=== PATIENT | male | born 1945 ===

== ENCOUNTER 2016-09-22 22:18 | Emergency (ER) | payer MEDICARE ==
[2016-09-22 22:18] VITALS: BMI 27.6
[2016-09-22 22:29] VITALS: TEMP 98.2
[2016-09-22 23:25] VITALS: RESP 20
--- NOTE | 2016-09-22 23:49 | C.PDOC ---
History Of Present Illness 70 y/o male, past medical history of HTN, DM, and hypercholesterolemia, presents to emergency department with complaint of elevated blood pressure on home monitor prior to arrival. Patient presents today s/p CABG 2 months ago. Does not have list of medications, but on review, patient has no earline inhibitor in regimen. Patient otherwise denies headache, visual changes, chest pain, palpitations, shortness of breath, nausea, vomiting, or other associated symptoms. Time Seen by Provider: 09/22/16 23:07 Chief Complaint (Nursing): High Blood Pressure History Per: Patient History/Exam Limitations: no limitations Onset/Duration Of Symptoms: Hrs Current Symptoms Are (Timing): Still Present Associated Symptoms: denies: Chest Pain, Dyspnea, Dizziness, Blurred Vision, Focal Weakness, Headache Recent travel outside of the [place]: No Past Medical History Reviewed: Historical Data, Nursing Documentation, Vital Signs Vital Signs: Last Vital Signs Temp 98.2 F 09/22/16 23:24 Pulse 85 09/22/16 23:24 Resp 20 09/22/16 23:24 BP 170/83 H 09/22/16 23:24 Pulse Ox 100 09/23/16 01:10 - Medical History PMH: Diabetes, HTN, Hypercholesterolemia Surgical History: CABG, Coronary Stent - [facility] Procedures DILATION OF 1 COR ART WITH DRUG-ELUT INTRA, PERC APPROACH (07/20/16) DILATION OF CORONARY ARTERY, TWO ARTERIES, PERC APPROACH (07/20/16) MEASURE OF CARDIAC SAMPL & PRESSURE, L HEART, PERC APPROACH (07/20/16) PLAIN RADIOGRAPHY OF LEFT HEART USING OTHER CONTRAST (07/20/16) PLAIN RADIOGRAPHY OF MULT COR ART USING OTH CONTRAST (07/20/16) Family History: States: Unknown Family Hx - Social History Hx Tobacco Use: No Hx Alcohol Use: No Hx Substance Use: No - Immunization History Hx Tetanus Toxoid Vaccination: No Hx Influenza Vaccination: Yes Hx Pneumococcal Vaccination: No Review Of Systems Except As Marked, All Systems Reviewed And Found Negative. Constitutional: Negative for: Fever, Chills Cardiovascular: Negative for: Chest Pain, Palpitations Respiratory: Negative for: Cough, Shortness of Breath, Wheezing Gastrointestinal: Negative for: Nausea, Vomiting Skin: Negative for: Rash Neurological: Negative for: Headache, Dizziness Physical Exam - Physical Exam Appears: Non-toxic, No Acute Distress Skin: Normal Color, Warm, Dry Head: Atraumatic, Normacephalic Eye(s): bilateral: Normal Inspection Oral Mucosa: Moist Chest: Symmetrical, Other (midline sternotomy scar, clean dry and intact, healed ) Cardiovascular: Rhythm Regular, No Murmur Respiratory: Normal Breath Sounds, No Rales, No Rhonchi, No Wheezing Gastrointestinal/Abdominal: Soft, No Tenderness Back: Normal Inspection Extremity: Normal ROM, Capillary Refill (< 2 sec. ) Neurological/Psych: Oriented x3, Normal Speech, Normal Cognition ED Course And Treatment - Laboratory Results Result Diagrams: 09/23/16 00:58 09/23/16 00:58 Lab Interpretation: Normal (trop/bnp neg.) ECG: Interpreted By Me ECG Rhythm: Sinus Rhythm, Nonspecific Changes (T^ inversions v1-v6, maybe related to recent CABG) ECG Interpretation: Normal, Abnormal Rate From EC O2 Sat by Pulse Oximetry: 100 (RA) Pulse Ox Interpretation: Normal - Radiology CXR: Interpreted by Me CXR Interpretation: Yes: No Acute Disease Progress Note: EKG, CXR, bloodwork ordered. Treated with Vasotec. Reevaluation Time: 01:52 Reassessment Condition: Improved - Physician Consult Information Outcome Of Conversation: d/w Dr. Vargas @ 23:15- ok to f/u in office, Start ACEI if not already taking. Medical Decision Making Medical Decision Making: unclear if pt taking ACEI s/p CABG 2 mo ago, poorly controlled BP Tolerated Vasotec 10 mg PO well- continue as opt f/u with Dr. Vargas in AM Disposition Doctor Will See Patient In The: Office Counseled Patient/Family Regarding: Studies Performed, Diagnosis - Disposition Disposition: HOME/ ROUTINE Disposition Time: 01:54 Condition: GOOD - Clinical Impression Clinical Impression: Hypertension - Scribe Statement The provider has reviewed the documentation as recorded by the Myrnaibdenice Quigley All medical record entries made by the Myrnaibdenice were at my direction and personally dictated by me. I have reviewed the chart and agree that the record accurately reflects my personal performance of the history, physical exam, medical decision making, and the department course for this patient. I have also personally directed, reviewed, and agree with the discharge instructions and disposition.
[2016-09-23 01:03] LABS: BASO % 0.4 % (0.0-2.0); EOS # 0.1 K/uL (0.0-0.7); EOS % 0.9 % (0.0-4.0); LYMPH # 1.1 K/uL (1.0-4.3); LYMPH % 11.5 % (20.0-40.0); MEAN CELL VOLUME 85.9 fL (80.0-94.0); MEAN CORPUSCULAR HEMOGLOBIN 27.6 pg (27.0-31.0); MEAN CORPUSCULAR HGB CONC 32.1 g/dL (33.0-37.0); MEAN PLATELET VOLUME 10.6 fL (7.2-11.7); MONO # 1.9 K/uL (0.0-0.8); MONO % 19.5 % (0.0-10.0); RED CELL DISTRIBUTION WIDTH 14.8 % (11.5-14.5); WHITE BLOOD COUNT 9.9 K/uL (4.8-10.8)
[2016-09-23 01:11] LABS: INR 1.1
[2016-09-23 01:14] LABS: CHLORIDE 99 mmol/L (98-107)
[2016-09-23 01:15] LABS: POTASSIUM 3.5 mmol/L (3.6-5.2); SODIUM 140 mmol/L (132-148)
[2016-09-23 01:17] LABS: ALB/GLOB RATIO 1.2 (1.0-2.1); ALKALINE PHOSPHATASE 101 U/L (38-126); ALT/SGPT 24 U/L (21-72); AST/SGOT 26 U/L (17-59); BILIRUBIN,TOTAL 0.5 mg/dL (0.2-1.3); BLOOD UREA NITROGEN 15 mg/dL (9-20); CARBON DIOXIDE 27 mmol/L (22-30); GFR AFRICAN-AMERICAN > 60; GLUCOSE,RANDOM 149 mg/dL (75-110); TOTAL PROTEIN 8.2 g/dL (6.3-8.3)
[2016-09-23 01:18] LABS: CALCIUM 9.3 mg/dl (8.6-10.4)
[2016-09-23 02:12] VITALS: BP 161/78; PULSE 71
[2016-09-23 02:18] VITALS: O2SAT 100
--- NOTE | 2016-09-23 08:02 | RAD ---
PROCEDURE: CHEST RADIOGRAPH, 1 VIEW HISTORY: Shortness of breath COMPARISON: None available. FINDINGS: LUNGS: Mild venous congestion. Left basilar airspace opacity with question small left pleural effusion. PLEURA: As above. CARDIOVASCULAR: Cardiomegaly. Status post median sternotomy. OSSEOUS STRUCTURES: No significant abnormalities. VISUALIZED UPPER ABDOMEN: Normal. OTHER FINDINGS: None. IMPRESSION: Mild venous congestion. Left basilar airspace opacity with question small left pleural effusion.
--- NOTE | 2016-09-23 18:11 | CARD ---
APPROVED REPORT EKG Measurement Heart [id number] <Conclusion> Normal sinus rhythm Possible Left atrial enlargement T wave abnormality, consider anterolateral ischemia Abnormal ECG
== END 2016-09-23 02:11 | disposition home or self-care (01) ==
LOC: C.ER 22:18
DX: I10 Essential (primary) hypertension (principal)

== ENCOUNTER 2016-09-28 22:29 | Observation (INO) | payer MEDICARE, OTHER ==
[2016-09-28 22:41] VITALS: BMI 26.5
[2016-09-28] MEDS ORDERED: Aspirin 325 mg EC Tablets PO STA (22:41)
--- NOTE | 2016-09-28 22:41 | C.PDOC ---
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 Denies any shortness of breath, nausea, or fever. Time Seen by Provider: 09/28/16 22:40 Chief Complaint (Nursing): Chest Pain History Per: Patient History/Exam Limitations: no limitations Onset/Duration Of Symptoms: Hrs (2) Current Symptoms Are (Timing): Still Present Severity: Moderate Pain Scale Rating Of: 4 Quality: Dull, Aching, Pressure Associated Symptoms: denies: Nausea, Dyspnea Modifying Factors: None Exacerbating Factors: None Alleviating Factors: None Recent travel outside of the [place]: No Additional History Per: Patient Past Medical History Reviewed: Historical Data, Nursing Documentation, Vital Signs Vital Signs: Last Vital Signs Temp 98.1 F 09/28/16 22:41 Pulse 77 09/28/16 23:55 Resp 14 09/28/16 23:55 BP 150/80 09/28/16 23:55 Pulse Ox 100 09/28/16 23:55 - Medical History PMH: Diabetes, HTN, Hypercholesterolemia Denies: Chronic Kidney Disease Surgical History: CABG, Coronary Stent - [facility] Procedures DILATION OF 1 COR ART WITH DRUG-ELUT INTRA, PERC APPROACH (07/20/16) DILATION OF CORONARY ARTERY, TWO ARTERIES, PERC APPROACH (07/20/16) MEASURE OF CARDIAC SAMPL & PRESSURE, L HEART, PERC APPROACH (07/20/16) PLAIN RADIOGRAPHY OF LEFT HEART USING OTHER CONTRAST (07/20/16) PLAIN RADIOGRAPHY OF MULT COR ART USING OTH CONTRAST (07/20/16) Family History: States: No Known Family Hx - Social History Hx Tobacco Use: No Hx Alcohol Use: No Hx Substance Use: No - Immunization History Hx Tetanus Toxoid Vaccination: No Hx Influenza Vaccination: Yes Hx Pneumococcal Vaccination: No Review Of Systems Constitutional: Negative for: Fever ENT: Negative for: Throat Pain Cardiovascular: Positive for: Chest Pain Respiratory: Negative for: Shortness of Breath Gastrointestinal: Negative for: Nausea Genitourinary: Negative for: Dysuria Musculoskeletal: Negative for: Back Pain Skin: Negative for: Rash, Lesions, Jaundice Neurological: Negative for: Weakness Psych: Negative for: Anxiety Physical Exam - Physical Exam Appears: Well, Non-toxic Skin: Warm, Dry Head: Atraumatic Oral Mucosa: Moist Neck: Supple Chest: Symmetrical, No Tenderness, Other (CABG scar) Cardiovascular: Rhythm Regular, No Murmur Respiratory: No Rales, No Rhonchi, No Wheezing Gastrointestinal/Abdominal: Soft, No Tenderness Back: Normal Inspection Extremity: Normal ROM Extremity: Bilateral: Atraumatic, No Pedal Edema, Normal Color And Temperature Neurological/Psych: Oriented x3, Normal Speech, Normal Cognition Gait: Steady ED Course And Treatment - Laboratory Results Result Diagrams: 09/28/16 22:46 09/28/16 22:46 ECG: Interpreted By Me, Viewed By Me ECG Rhythm: Sinus Rhythm (90), Nonspecific Changes Pulse Ox Interpretation: Normal - Radiology CXR: Interpreted by Me, Viewed By Me CXR Interpretation: Yes: Other (mild venous congestion). No: Infiltrates, Fracture, Pnemothorax Progress Note: Blood work, EKG, CXR, and urinalysis ordered. Ecotrin PO, morphine IVP, and zofran IVP administered. Disposition Discussed With DrDeanna: Darian Vargas Comment: accepted the pt on his service and took over the care at 11:58 PM Doctor Will See Patient In The: Hospital Counseled Patient/Family Regarding: Studies Performed, Diagnosis - Disposition Disposition: HOSPITALIZED Disposition Time: 22:40 Condition: FAIR - POA Present On Arrival: None - Clinical Impression Clinical Impression: Chest pain - Scribe Statement The provider has reviewed the documentation as recorded by the Scribdenice Brian All medical record entries made by the Scribe were at my direction and personally dictated by me. I have reviewed the chart and agree that the record accurately reflects my personal performance of the history, physical exam, medical decision making, and the department course for this patient. I have also personally directed, reviewed, and agree with the discharge instructions and disposition. Decision To Admit - Pt Status Changed To: Hospital Disposition Of: Inpatient - Admit Certification Admit to Inpatient:: After my assessment, the patient will require hospitalization for at least two midnights. This is because of the severity of symptoms shown, intensity of services needed, and/or the medical risk in this patient being treated as an outpatient. - InPatient: Physician Admission Certification: I certify that this patient requires 2 or more midnights of care for the following reason:: After my assessment, the patient will require hospitalization for at least two midnights. This is because of the severity of symptoms shown, intensity of services needed, and/or the medical risk in this patient being treated as an outpatient. - . Bed Request Type: Telemetry Admitting Physician: Darian Vargas Patient Diagnosis: Chest pain
[2016-09-28 22:50] LABS: BASO # 0.1 K/uL (0.0-0.2); EOS # 0.1 K/uL (0.0-0.7)
[2016-09-28 22:55] LABS: BASO % 0.8 % (0.0-2.0); EOS % 1.4 % (0.0-4.0); HEMATOCRIT 37.6 % (35.0-51.0); LYMPH # 2.3 K/uL (1.0-4.3); MEAN CELL VOLUME 84.9 fL (80.0-94.0); MEAN CORPUSCULAR HEMOGLOBIN 27.9 pg (27.0-31.0); MEAN CORPUSCULAR HGB CONC 32.9 g/dL (33.0-37.0); MEAN PLATELET VOLUME 10.5 fL (7.2-11.7); MONO # 2.5 K/uL (0.0-0.8); MONO % 24.9 % (0.0-10.0); NRBC % 0.1 % (0.0-2.0); RED CELL DISTRIBUTION WIDTH 14.6 % (11.5-14.5); WHITE BLOOD COUNT 10.2 K/uL (4.8-10.8)
[2016-09-28 22:58] LABS: PLATELET COUNT 100 K/uL (130-400)
[2016-09-28 22:59] LABS: INR 1.1
[2016-09-28 23:07] LABS: CHLORIDE 100 mmol/L (98-107); SODIUM 139 mmol/L (132-148)
[2016-09-28 23:08] LABS: POTASSIUM 3.5 mmol/L (3.6-5.2)
[2016-09-28 23:10] LABS: ALB/GLOB RATIO 1.3 (1.0-2.1); ALKALINE PHOSPHATASE 89 U/L (38-126); AST/SGOT 25 U/L (17-59); BILIRUBIN,TOTAL 0.6 mg/dL (0.2-1.3); BLOOD UREA NITROGEN 20 mg/dL (9-20); CARBON DIOXIDE 26 mmol/L (22-30); GFR AFRICAN-AMERICAN > 60; GLUCOSE,RANDOM 108 mg/dL (75-110); TOTAL PROTEIN 8.2 g/dL (6.3-8.3)
[2016-09-28 23:11] LABS: ALT/SGPT 18 U/L (21-72); CALCIUM 9.3 mg/dl (8.6-10.4)
[2016-09-28 23:27] LABS: EOSINOPHIL 1 % (0-4); NEUTROPHIL 43 % (50-75); REACTIVE LYMPHOCYTES 5 % (0-0); TOTAL CELLS COUNTED 100
[2016-09-29] MEDS ORDERED: Nitroglycerin 2% Ointment Foilpak UD TOP ONE (00:24)
[2016-09-29] MEDS: Nitroglycerin 2% Ointment Foilpak UD TOP SCH ×3 (06:04→18:39)
[2016-09-29] MEDS: (Novolin R) Insulin Human Regular 100 units/ml vial SC SCH ×4 (07:45→21:54)
--- NOTE | 2016-09-29 08:56 | RAD ---
HISTORY: chest pain COMPARISON: Chest x-ray performed 09/22/16 TECHNIQUE: Chest, one view. FINDINGS: LUNGS: Left basilar atelectasis and probable tiny left pleural effusion. Please note that chest x-ray has limited sensitivity for the detection of pulmonary masses. PLEURA: No significant pleural effusion identified. No definite pneumothorax . CARDIOVASCULAR: Median sternotomy wires. Cardiomegaly. Atherosclerotic calcifications. OSSEOUS STRUCTURES: Degenerative changes. VISUALIZED UPPER ABDOMEN: Unremarkable. OTHER FINDINGS: None. IMPRESSION: Left basilar atelectasis and probable tiny left pleural effusion.
[2016-09-29] MEDS ORDERED: Aluminum Hydroxide/Magnesium Hydroxide Susp (30 mL) PO ONE (09:18)
[2016-09-29] MEDS: Enoxaparin 30 mg Syringe SC SCH (09:37)
[2016-09-29] MEDS ORDERED: ROSUVASTATIN CALCIUM 40 MG PO SCH (10:00)
[2016-09-29] MEDS: Pantoprazole 40 mg EC Tab PO SCH (11:53)
--- NOTE | 2016-09-29 14:16 | CP.PCM.HP ---
History of Present Illness - History of Present Illness History of Present Illness: COMPREHENSIVE HISTORY & PHYSICAL EXAM HPI PT EXPERIECED SHARP CHEST PAIN AT REST . EVALUATED IN ER AND ADMITTED HAD 2 VESSEL CAD BYPASS 08/16. POST OP HAS REKHA C/O CHEST PAIN FROM SURGICAL INCISION. NO CP ON EXERTION PAST HIST. HTN /CABG PERSONAL HIST: Smoking. N Alcohol. N Allergy N Travel_- . FAMILY HIST : ROS : Constitutional: Negative for weight change, chills, night sweats, fatigue and usage of assist device. Eyes: Negative for redness, swelling, itching, discharge, vision changes, blurry vision, double vision, glaucoma, cataracts, Ears: Negative for hearing loss, ringing, , tinnitus, vertigo Nose: Negative for rhinorrhea, stuffiness, sniffing, itching, postnasal drip, discoloration, nasal congestion and epistaxis. Throat: Negative for throat clearing, sore throat, hoarseness, difficulty swallowing and difficulty speaking. Respiratory: Negative for cough, chest tightness, sputum or phlegm, chronic cough, hemoptysis, wheezing, snoring at night, pleuritic chest pain and daytime somnolence. Cardiovascular: Negative , palpitations, orthopnea, PND, Edema of legs, leg cramps, angina, claudication, , irregular heartbeat, Neurology: Negative for irritability, muscle weakness, numbness and tingling, seizures, tremors, migraines, slurred speech, syncope, memory loss, mood changes , recurrent headaches Gastrointestinal: Negative for difficulty swallowing, diarrhea, constipation, black stools, rectal bleeding, nausea, flatulence, reflux, poor appetite, changes in bowel habits, abdominal pain Genitourinary: Negative for frequent urination, hematuria, discharge, incontinence, urinary retention, frequent UTI, Psychiatric: Negative for depression, anxiety/panic, suicidal tendencies, Musculoskeletal: Negative for swollen joints, back pain, , neck pain, morning stiffness of joints, . Skin: Negative for rash, ulcers, itching, dry skin and pigmented lesions. P/E: Constitutional: Appears stated age and in no apparent distress. Head: Normocephalic. Ears: External ear canals patent without inflammation. Tympanic membranes intact with normal light reflex and landmark. Eyes: Pupils are central, bilaterally equal, symmetrical and reacts to light with normal movements and no icterus or pallor. Nose: External nares are patent. Mucosa is pink Mouth-Throat: Good general appearance and condition. No post-pharyngeal/oropharyngeal erythema and tonsillar hypertrophy. Good dental hygiene. Neck-Lymphatic: Neck is supple with normal ROM, no thyromegaly, lymph nodes or masses. JVD is normal with no carotid bruit. Lungs: Clear to percussion and auscultation with bilateral normal air entry. Cardiovascular: S1 and S2 are normal with no murmurs, gallops and rub. GI Exam: No hepatomegaly. Abdomen is soft and non-tender. No Organomegaly , masses or hernias are evident and bowel sounds are normal and active. Neurology: Higher function and all cranial nerves intact, with no gross motor or sensory deficit. Superficial and deep reflexes are normal with downwards planters. No cerebellar deficit with normal gait. Musculoskeletal: No tender spots with normal curvature of the spine with no swelling or restricted ROM of the small and large joints. Extremities: Homans sign absent. Intact pulses with no pitting edema, calf tenderness or skin color changes. Skin: No rash, eruptions or abnormal skin pigmentation LAB/RADIOLOGY: ASSESMENT : ATYPICAL CP , MUSCULAR/ANGINA HTN CABG PLAN OBSERVE Present on Admission - Present on Admission Any Indicators Present on Admission: No Past Patient History - Infectious Disease Hx of Infectious Diseases: None - Past Medical History & Family History Past Medical History?: Yes - Past Social History Smoking Status: Former Smoker - CARDIAC Hx Hypercholesterolemia: Yes Hx Hypertension: Yes - RENAL Hx Chronic Kidney Disease: No - ENDOCRINE/METABOLIC Hx Diabetes Mellitus Type 2: Yes - MUSCULOSKELETAL/RHEUMATOLOGICAL Hx Falls: No - GASTROINTESTINAL Hx Gastroesophageal Reflux: Yes - PSYCHIATRIC Hx Substance Use: No - SURGICAL HISTORY Hx Coronary Artery Bypass Graft: Yes Hx Coronary Stent: Yes - ANESTHESIA Hx Anesthesia: Yes Hx Anesthesia Reactions: No Hx Malignant Hyperthermia: No Meds Allergies/Adverse Reactions: Allergies Allergy/AdvReac Type Severity Reaction Status Date / Time No Known Allergies Allergy Verified 09/22/16 22:29 Results - Vital Signs Recent Vital Signs: Last Vital Signs Temp 97.3 F L 09/29/16 08:41 Pulse 71 09/29/16 08:41 Resp 18 09/29/16 08:41 BP 141/82 09/29/16 09:32 Pulse Ox 99 09/29/16 08:41 - Labs Result Diagrams: 09/28/16 22:46 09/28/16 22:46 Labs: Laboratory Results - last 24 hr 09/29/16 09/29/16 09/29/16 06:10 06:14 11:52 POC Glucose (mg/dL) 113 H 136 H Total Creatine Kinase 67 CK-MB (Mass) 0.52 Troponin I, Quant < 0.0120 09/29/16 13:38 POC Glucose (mg/dL) Total Creatine Kinase 67 CK-MB (Mass) 0.62 Troponin I, Quant < 0.0120
[2016-09-29 15:50] VITALS: RESP 20
[2016-09-30] MEDS: Nitroglycerin 2% Ointment Foilpak UD TOP SCH ×3 (00:53→12:00)
[2016-09-30 01:29] VITALS: TEMP 98.2
[2016-09-30] MEDS: (Novolin R) Insulin Human Regular 100 units/ml vial SC SCH ×2 (08:05→12:00)
[2016-09-30] MEDS: Pantoprazole 40 mg EC Tab PO SCH (09:29)
[2016-09-30] MEDS: Enoxaparin 30 mg Syringe SC SCH (09:31)
[2016-09-30] MEDS ORDERED: Pneumococcal 23-Valent Vaccine IM ONE (10:00)
--- NOTE | 2016-09-30 12:39 | CP.PCM.DIS ---
Provider - Provider Date of Admission: 09/28/16 23:59 Attending physician: Darian Vargas MD Time Spent in preparation of Discharge (in minutes): 35 Hospital Course - Lab Results Lab Results: Most Recent Lab Values WBC 10.2 K/uL (4.8-10.8) 09/28/16 22:46 RBC 4.43 Mil/uL (4.40-5.90) 09/28/16 22:46 Hgb 12.4 g/dL (12.0-18.0) 09/28/16 22:46 Hct 37.6 % (35.0-51.0) 09/28/16 22:46 MCV 84.9 fL (80.0-94.0) 09/28/16 22:46 MCH 27.9 pg (27.0-31.0) 09/28/16 22:46 MCHC 32.9 g/dL (33.0-37.0) L 09/28/16 22:46 RDW 14.6 % (11.5-14.5) H 09/28/16 22:46 Plt Count 100 K/uL (130-400) L 09/28/16 22:46 MPV 10.5 fL (7.2-11.7) 09/28/16 22:46 Neut % (Auto) 49.9 % (50.0-75.0) L 09/28/16 22:46 Lymph % (Auto) 23.0 % (20.0-40.0) 09/28/16 22:46 Branch % (Auto) 24.9 % (0.0-10.0) H 09/28/16 22:46 Eos % (Auto) 1.4 % (0.0-4.0) 09/28/16 22:46 Baso % (Auto) 0.8 % (0.0-2.0) 09/28/16 22:46 Neut # 5.1 K/uL (1.8-7.0) 09/28/16 22:46 Lymph # 2.3 K/uL (1.0-4.3) 09/28/16 22:46 Branch # 2.5 K/uL (0.0-0.8) H 09/28/16 22:46 Eos # 0.1 K/uL (0.0-0.7) 09/28/16 22:46 Baso # 0.1 K/uL (0.0-0.2) 09/28/16 22:46 Neutrophils % (Manual) 43 % (50-75) L 09/28/16 22:46 Lymphocytes % (Manual) 18 % (20-40) L 09/28/16 22:46 Reactive Lymphs % 5 % (0-0) H 09/28/16 22:46 Monocytes % (Manual) 33 % (0-10) H 09/28/16 22:46 Eosinophils % (Manual) 1 % (0-4) 09/28/16 22:46 Platelet Estimate Decreased (NORMAL) L 09/28/16 22:46 PT 12.2 SECONDS (9.7-12.2) 09/28/16 22:46 INR 1.1 09/28/16 22:46 APTT 35 SECONDS (21-34) H 09/28/16 22:46 Sodium 139 mmol/L (132-148) 09/28/16 22:46 Potassium 3.5 mmol/L (3.6-5.2) L 09/28/16 22:46 Chloride 100 mmol/L (98-107) 09/28/16 22:46 Carbon Dioxide 26 mmol/L (22-30) 09/28/16 22:46 Anion Gap 17 (10-20) 09/28/16 22:46 BUN 20 mg/dL (9-20) 09/28/16 22:46 Creatinine 1.0 MG/DL (0.8-1.5) 09/28/16 22:46 Est GFR ( Amer) > 60 09/28/16 22:46 Est GFR (Non-Af Amer) > 60 09/28/16 22:46 POC Glucose (mg/dL) 100 mg/dL (65-110) 09/30/16 11:41 Random Glucose 108 mg/dL (75-110) 09/28/16 22:46 Calcium 9.3 mg/dl (8.6-10.4) 09/28/16 22:46 Total Bilirubin 0.6 mg/dL (0.2-1.3) 09/28/16 22:46 AST 25 U/L (17-59) 09/28/16 22:46 ALT 18 U/L (21-72) L D 09/28/16 22:46 Alkaline Phosphatase 89 U/L (38-126) 09/28/16 22:46 Total Creatine Kinase 55 U/L (55-170) 09/30/16 06:22 CK-MB (Mass) 0.47 ng/mL (0.0-3.38) 09/30/16 06:22 Troponin I < 0.0120 ng/mL (0.00-0.120) 09/28/16 22:46 Troponin I, Quant < 0.0120 ng/mL (0.00-0.120) 09/30/16 06:22 NT-Pro-B Natriuret Pep 280 pg/mL (0-900) 09/28/16 22:46 Total Protein 8.2 g/dL (6.3-8.3) 09/28/16 22:46 Albumin 4.6 g/dL (3.5-5.0) 09/28/16 22:46 Globulin 3.6 gm/dL (2.2-3.9) 09/28/16 22:46 Albumin/Globulin Ratio 1.3 (1.0-2.1) 09/28/16 22:46 - Hospital Course Hospital Course: ADMITTED WITH ATYPICAL CP S/P 2 V CABG LAST MONTH PT HAD NEG TNI EKG UNCHANGED FROM PREVIOUS F/U OP IV LEXISCAN OP Discharge Plan - Follow Up Plan Condition: FAIR Disposition: HOME/ ROUTINE
[2016-09-30 13:00] LABS: BASO % 0.3 % (0.0-2.0); EOS # 0.1 K/uL (0.0-0.7); EOS % 1.4 % (0.0-4.0); HEMATOCRIT 40.7 % (35.0-51.0); LYMPH # 0.9 K/uL (1.0-4.3); LYMPH % 13.2 % (20.0-40.0); MEAN CELL VOLUME 86.4 fL (80.0-94.0); MEAN CORPUSCULAR HEMOGLOBIN 27.9 pg (27.0-31.0); MEAN CORPUSCULAR HGB CONC 32.3 g/dL (33.0-37.0); MEAN PLATELET VOLUME 10.9 fL (7.2-11.7); MONO # 1.6 K/uL (0.0-0.8); MONO % 21.8 % (0.0-10.0); PLATELET COUNT 112 K/uL (130-400); RED CELL DISTRIBUTION WIDTH 14.8 % (11.5-14.5); WHITE BLOOD COUNT 7.2 K/uL (4.8-10.8)
[2016-09-30 13:35] LABS: CHLORIDE 98 mmol/L (98-107)
[2016-09-30 13:36] LABS: POTASSIUM 3.8 mmol/L (3.6-5.2); SODIUM 140 mmol/L (132-148)
[2016-09-30 13:38] LABS: ALB/GLOB RATIO 1.2 (1.0-2.1); AST/SGOT 25 U/L (17-59); BILIRUBIN,TOTAL 0.8 mg/dL (0.2-1.3); BLOOD UREA NITROGEN 10 mg/dL (9-20); CARBON DIOXIDE 27 mmol/L (22-30); GFR AFRICAN-AMERICAN > 60
[2016-09-30 13:39] LABS: ALKALINE PHOSPHATASE 79 U/L (38-126); ALT/SGPT 11 U/L (21-72); CALCIUM 9.2 mg/dl (8.6-10.4); GLUCOSE,RANDOM 137 mg/dL (75-110)
[2016-09-30 13:59] LABS: EOSINOPHIL 1 % (0-4); NEUTROPHIL 65 % (50-75); TOTAL CELLS COUNTED 100
[2016-09-30 14:00] LABS: GIANT PLATELETS PRESENT; LARGE PLATELETS PRESENT
[2016-09-30 15:29] VITALS: BP 121/71; PULSE 62; O2SAT 97
--- NOTE | 2016-09-30 15:40 | CARD ---
APPROVED REPORT EKG Measurement Heart [id number] 140P52 [id number] <Conclusion> Normal sinus rhythm Possible Left atrial enlargement ST & T wave abnormality, consider anterior ischemia Abnormal ECG
--- NOTE | 2016-10-01 14:07 | CARD ---
APPROVED REPORT EKG Measurement Heart [id number] 142P62 [id number] <Conclusion> Normal sinus rhythm Possible Left atrial enlargement Incomplete right bundle branch block T wave abnormality, consider anterior ischemia Abnormal ECG
== END 2016-09-30 16:05 | disposition home or self-care (01) ==
LOC: C.ER 22:29 → INTOOBSV 23:59 → C.6T 23:59
PROVIDERS: ADMIT Internal Medicine Cardiovascular Disease; ATTEND Internal Medicine Cardiovascular Disease
DX: I25.119 Atherosclerotic heart disease of native coronary artery with unspecified angina pectoris (principal); I10 Essential (primary) hypertension; Z95.1 Presence of aortocoronary bypass graft; Z23 Encounter for immunization
CPT/HCPCS: 36415; 71010; 80053; 82948; 83880; 84484; 85025; 85610; 85730; 90732; 93005; 96374; 96375; 99284; G0009; G0378; J1650; J2270; J2405

== ENCOUNTER 2016-11-01 13:37 | Inpatient (IN) | payer MEDICARE ==
[2016-10-30 08:03] VITALS: BMI 25.1
[2016-11-01] MEDS ORDERED: Iodixanol 320 MG/ML 100 ML BOTTLE IV ONE (15:21)
[2016-11-01] MEDS ORDERED: Iohexol 350mg/ml 100 ML ONE ×2 (15:22→16:23)
--- NOTE | 2016-11-01 18:50 | CARDCATH ---
PROCEDURE DATE: 10/31/2016 The patient is a 70-year-old with history of coronary artery with CABG with MACKEY. He has recurrent c hest pain on minimal exertion. IV Myoview was positive in the anteroseptal region. The patient underwent a left heart catheterization. A left heart cath was done to the right femoral sarahi ry. The right femoral artery was cleaned, draped and #6 introducer sheath was inserted with slight d ifficulty and Angio-Seal was used post-cath. Jovita was used for right-left and Jovita was also us ed for the graft. LV gram was not done. Left main is a normal vessel with some 20% to 30% lesion. LAD proximally is 100% blocked. Circumfle x vessel gives off the large OM branch. The stent in the OM appears to be functioning well and subse quently the OM cannot be seen, is 100% blocked. RCA is a large, dominant vessel. Proximally the doug nt appears to be functioning well. There is still a slight bend of about 20%. The MACKEY graft proximal to the body and to the insertion appears normal. There are no lesions. The graft to the diagonal has a stump, but is 100% blocked. There were no other grafts. The proce dure was concluded. ASSESSMENT: Functioning left internal mammary artery graft to the left anterior descending 100% blocked graft __ __saphenous vein graft to the diagonal functioning stent to the proximal right coronary artery and th e obtuse marginal branch. We will discuss this with interventional cardiology as the patient continues to have chest pain on mi nimal exertion. Darian Vargas MD cc: [id number] TT: 11/01/2016 18:49:40
--- NOTE | 2016-11-01 22:31 | CP.PCM.HP ---
History of Present Illness - History of Present Illness History of Present Illness: COMPREHENSIVE HISTORY & PHYSICAL EXAM HPI PT ADMITTED AFTER CARDIAC CATH PT IS S/P CABG , MACKEY TO LAD AND SVG TO DIAG. AND STENT IN POX RCA . PT HAS CP ON MINIMAL EXERTION AND HAD A HIGHLY POS IV LEXISCAN MYOVIEW TEST IN ANT .ANT LATERAL WITH ST DEPRESSION PT HAS PATENT MACKEY AND OCCLUDRD SVG TO IDAG AND NORMAL STENT IN RCA . LV GRAM NOT DONE . IN VIEW OF PERSISTENT CP , PT WAS ADMITTED FOR FURTHER EVAL PAST HIST. CAD/STENT/CABG/THROMBOCYTOPENIA /HTN PERSONAL HIST: Smoking. N Alcohol. N Allergy N Travel_- . FAMILY HIST : ROS : Constitutional: Negative for weight change, chills, night sweats, fatigue and usage of assist device. Eyes: Negative for redness, swelling, itching, discharge, vision changes, blurry vision, double vision, glaucoma, cataracts, Ears: Negative for hearing loss, ringing, , tinnitus, vertigo Nose: Negative for rhinorrhea, stuffiness, sniffing, itching, postnasal drip, discoloration, nasal congestion and epistaxis. Throat: Negative for throat clearing, sore throat, hoarseness, difficulty swallowing and difficulty speaking. Respiratory: Negative for cough, chest tightness, sputum or phlegm, chronic cough, hemoptysis, wheezing, snoring at night, pleuritic chest pain and daytime somnolence. Cardiovascular: Negative for chest pain, palpitations, orthopnea, PND, Edema of legs, leg cramps, angina, claudication, , irregular heartbeat, Neurology: Negative for irritability, muscle weakness, numbness and tingling, seizures, tremors, migraines, slurred speech, syncope, memory loss, mood changes , recurrent headaches Gastrointestinal: Negative for difficulty swallowing, diarrhea, constipation, black stools, rectal bleeding, nausea, flatulence, reflux, poor appetite, changes in bowel habits, abdominal pain Genitourinary: Negative for frequent urination, hematuria, discharge, incontinence, urinary retention, frequent UTI, Psychiatric: Negative for depression, anxiety/panic, suicidal tendencies, Musculoskeletal: Negative for swollen joints, back pain, , neck pain, morning stiffness of joints, . Skin: Negative for rash, ulcers, itching, dry skin and pigmented lesions. P/E: Constitutional: Appears stated age and in no apparent distress. Head: Normocephalic. Ears: External ear canals patent without inflammation. Tympanic membranes intact with normal light reflex and landmark. Eyes: Pupils are central, bilaterally equal, symmetrical and reacts to light with normal movements and no icterus or pallor. Nose: External nares are patent. Mucosa is pink Mouth-Throat: Good general appearance and condition. No post-pharyngeal/oropharyngeal erythema and tonsillar hypertrophy. Good dental hygiene. Neck-Lymphatic: Neck is supple with normal ROM, no thyromegaly, lymph nodes or masses. JVD is normal with no carotid bruit. Lungs: Clear to percussion and auscultation with bilateral normal air entry. Cardiovascular: S1 and S2 are normal with no murmurs, gallops and rub. GI Exam: No hepatomegaly. Abdomen is soft and non-tender. No Organomegaly , masses or hernias are evident and bowel sounds are normal and active. Neurology: Higher function and all cranial nerves intact, with no gross motor or sensory deficit. Superficial and deep reflexes are normal with downwards planters. No cerebellar deficit with normal gait. Musculoskeletal: No tender spots with normal curvature of the spine with no swelling or restricted ROM of the small and large joints. Extremities: Homans sign absent. Intact pulses with no pitting edema, calf tenderness or skin color changes. R. GRON RECENT CATH WOUND , NO HEMATOMA Skin: No rash, eruptions or abnormal skin pigmentation LAB/RADIOLOGY: ASSESMENT : UNSTABLE ANGINA HTN CABG/STENT DM PLAN: WILL D/W DR. MICHAEL, IC , IF ANY FURTHER INTERVENTION IS FEASIBLE. MAXIMIZE MEDICAL ANTI ANGINAL THERAPY Past Patient History - Infectious Disease Hx of Infectious Diseases: None - Past Medical History & Family History Past Medical History?: Yes - Past Social History Smoking Status: Former Smoker - CARDIAC Hx Cardiac Disorders: Yes Hx Angina: Yes ("ATYPICAL CP, MUSCULAR/ANGINA") Hx Hypercholesterolemia: Yes Hx Hypertension: Yes Other/Comment: HX: NON-ST ELEVATION MYOCARDIAL INFARCTION. HX: CORONARY ARTERY DISEASE AND STENTPLACEMENT. HX: (2) V CABG AUGUST 2016. HX: 07/23/16 -OBTUSE MARGINAL ARTERY BALLON ANGIOPLAST AND DRUG-ELUDING STENT PLACEMENT. - LEFT ANTERIOR DESCENDING CORONARY ARTERY BALLON ANGIOPLASTY. - PULMONARY Hx Respiratory Disorders: No - NEUROLOGICAL Hx Neurological Disorder: No - HEENT Hx HEENT Problems: No - RENAL Hx Chronic Kidney Disease: No - ENDOCRINE/METABOLIC Hx Endocrine Disorders: Yes Hx Diabetes Mellitus Type 2: Yes - HEMATOLOGICAL/ONCOLOGICAL Hx Blood Disorders: No - INTEGUMENTARY Hx Dermatological Problems: No - MUSCULOSKELETAL/RHEUMATOLOGICAL Hx Musculoskeletal Disorders: No Hx Falls: No - GASTROINTESTINAL Hx Gastrointestinal Disorders: Yes Hx Gastroesophageal Reflux: Yes - GENITOURINARY/GYNECOLOGICAL Hx Genitourinary Disorders: No - PSYCHIATRIC Hx Psychophysiologic Disorder: No Hx Substance Use: No - SURGICAL HISTORY Hx Surgeries: Yes Hx Angioplasty: Yes Hx Cardiac Catheterization: Yes Hx Coronary Artery Bypass Graft: Yes Hx Coronary Stent: Yes Hx Herniorrhaphy: Yes (LEFT GROIN) - ANESTHESIA Hx Anesthesia: Yes Hx Anesthesia Reactions: No Hx Malignant Hyperthermia: No Meds Allergies/Adverse Reactions: Allergies Allergy/AdvReac Type Severity Reaction Status Date / Time No Known Allergies Allergy Verified 09/22/16 22:29 Results - Vital Signs Recent Vital Signs: Last Vital Signs Temp 98 F 11/01/16 18:25 Pulse 68 11/01/16 18:25 Resp 20 11/01/16 18:25 BP 134/72 11/01/16 18:25 Pulse Ox 99 11/01/16 18:25 - Labs Result Diagrams: 11/02/16 11:16 11/02/16 11:16 Labs: Laboratory Results - last 24 hr 11/01/16 11/01/16 14:17 21:29 POC Glucose (mg/dL) 74 200 H
[2016-11-01] MEDS: Ranolazine 500 mg Extended Release Tablets PO SCH (23:00)
[2016-11-02 05:34] VITALS: O2SAT 98
[2016-11-02] MEDS: Ranolazine 500 mg Extended Release Tablets PO SCH (09:38)
[2016-11-02] MEDS ORDERED: Enoxaparin 40 mg Syringe SC SCH (10:00)
[2016-11-02 11:24] LABS: LYMPH # 0.8 K/uL (1.0-4.3); MEAN CORPUSCULAR HEMOGLOBIN 27.9 pg (27.0-31.0); WHITE BLOOD COUNT 6.4 K/uL (4.8-10.8)
[2016-11-02 11:29] LABS: CHLORIDE 97 mmol/L (98-107); POTASSIUM 4.1 mmol/L (3.6-5.2); SODIUM 135 mmol/L (132-148)
[2016-11-02 11:32] LABS: CARBON DIOXIDE 30 mmol/L (22-30); GFR AFRICAN-AMERICAN > 60
[2016-11-02 11:33] LABS: BLOOD UREA NITROGEN 13 mg/dL (9-20); CALCIUM 8.7 mg/dl (8.6-10.4); GLUCOSE,RANDOM 158 mg/dL (75-110)
[2016-11-02 11:38] LABS: BASO # 0.1 K/uL (0.0-0.2); BASO % 1.1 % (0.0-2.0); EOS # 0.2 K/uL (0.0-0.7); EOS % 3.4 % (0.0-4.0); HEMATOCRIT 37.8 % (35.0-51.0); MEAN CELL VOLUME 84.5 fL (80.0-94.0); MEAN PLATELET VOLUME 10.1 fL (7.2-11.7); MONO # 1.4 K/uL (0.0-0.8); MONO % 21.7 % (0.0-10.0); RED CELL DISTRIBUTION WIDTH 13.8 % (11.5-14.5)
[2016-11-02 11:39] LABS: PLATELET COUNT 89 K/uL (130-400)
[2016-11-02 11:50] LABS: EOSINOPHIL 3 % (0-4); NEUTROPHIL 67 % (50-75); TOTAL CELLS COUNTED 100
[2016-11-02 11:51] LABS: LARGE PLATELETS PRESENT
[2016-11-02 11:52] LABS: GIANT PLATELETS PRESENT
[2016-11-02 13:07] VITALS: BP 125/71
--- NOTE | 2016-11-02 14:18 | CP.PCM.PN ---
Subjective - Date & Time of Evaluation Date of Evaluation: 11/02/16 Time of Evaluation: 14:17 - Subjective Subjective: NO CP AT REST , CP ON MINIMAL EXERTION CATH WOUND HEALING INCREASE MEDS TO D/W IC Objective - Vital Signs/Intake and Output Vital Signs (last 24 hours): Temp Pulse Resp BP Pulse Ox 98.1 F 66 26 H 125/71 98 11/02/16 09:25 11/02/16 13:00 11/02/16 09:25 11/02/16 13:00 11/02/16 09:25 Intake and Output: 11/02/16 11/02/16 11:59 23:59 Intake Total 110 Output Total 600 Balance -490 - Medications Medications: Current Medications Aspirin (Ecotrin) 81 mg PO DAILY [facility] Last Admin: 11/02/16 10:03 Dose: 81 mg Clopidogrel Bisulfate (Plavix) 75 mg PO DAILY [facility] Last Admin: 11/02/16 09:38 Dose: 75 mg Docusate Sodium (Colace) 200 mg PO DAILY [facility] Last Admin: 11/02/16 09:38 Dose: 200 mg Enalapril Maleate (Vasotec) 10 mg PO DAILY [facility] Last Admin: 11/02/16 09:39 Dose: 10 mg Enoxaparin Sodium (Lovenox) 40 mg SC DAILY [facility] Last Admin: 11/02/16 09:39 Dose: 40 mg Famotidine (Pepcid) 20 mg PO BID [facility] Last Admin: 11/02/16 09:39 Dose: 20 mg Metformin HCl (Glucophage) 500 mg PO DAILY [facility] Last Admin: 11/02/16 09:39 Dose: 500 mg Metoprolol Tartrate (Lopressor) 100 mg PO DAILY [facility] Last Admin: 11/02/16 09:38 Dose: 100 mg Ranolazine (Ranexa) 500 mg PO BID [facility] Last Admin: 11/02/16 09:38 Dose: 500 mg Rosuvastatin Calcium (Crestor) 40 mg PO [facility] - Labs Labs: 11/02/16 11:16 11/02/16 11:16
[2016-11-02 15:57] VITALS: PULSE 59
[2016-11-02 16:28] VITALS: RESP 20; TEMP 98.3
[2016-11-02] MEDS ORDERED: Ranolazine 500 mg Extended Release Tablets PO SCH (18:00)
--- NOTE | 2016-11-02 18:48 | CP.PCM.CON ---
History of Present Illness - History of Present Illness History of Present Illness: A 70 year old male Hx of CAD s/p multi vessel PCI, CABG X 2 (07/2016) admitted chest pain with minimal exertion. Stress test reveals positive ischemia in lateral wall. Patient states the pain associated with dyspnea and palpitations and limiting his functional ability Past Medical History PMH: Diabetes, HTN, Hypercholesterolemia Surgical History: Coronary Stents, CABG x 2 Family History: States: Unknown Family Hx - Social History Hx Tobacco Use: No Hx Alcohol Use: Yes Hx Substance Use: No - Immunization History Hx Tetanus Toxoid Vaccination: No Hx Influenza Vaccination: Yes Hx Pneumococcal Vaccination: No Review Of Systems Except As Marked, All Systems Reviewed And Found Negative. Constitutional: Negative for: Fever Cardiovascular: Positive for: Chest Pain Respiratory: Negative for: Shortness of Breath Gastrointestinal: Negative for: Nausea, Vomiting, Abdominal Pain, Diarrhea Neurological: Negative for: Headache, Dizziness Physical Exam - Physical Exam Appears: Well, Non-toxic Skin: Warm, Dry Head: Atraumatic, Normacephalic Eye(s): bilateral: Normal Inspection Ear(s): Bilateral: Normal Throat: Normal, No Erythema, No Exudate Neck: Normal, Normal ROM, Supple Chest: Symmetrical, Tenderness Cardiovascular: Rhythm Regular Respiratory: Normal Breath Sounds, No Rales, No Rhonchi, No Wheezing Gastrointestinal/Abdominal: Soft, No Tenderness, No Guarding, No Rebound Back: Normal Inspection Extremity: Normal ROM, No Tenderness, No Pedal Edema, Capillary Refill, No Deformity, No Swelling Pulses: Left Dorsalis Pedis: Normal, Right Dorsalis Pedis: Normal Neurological/Psych: Oriented x3, Normal Speech, Normal Cognition Past Patient History - Infectious Disease Hx of Infectious Diseases: None - Past Medical History & Family History Past Medical History?: Yes - Past Social History Smoking Status: Former Smoker - CARDIAC Hx Cardiac Disorders: Yes Hx Angina: Yes ("ATYPICAL CP, MUSCULAR/ANGINA") Hx Hypercholesterolemia: Yes Hx Hypertension: Yes Other/Comment: HX: NON-ST ELEVATION MYOCARDIAL INFARCTION. HX: CORONARY ARTERY DISEASE AND STENTPLACEMENT. HX: (2) V CABG AUGUST 2016. HX: 07/23/16 -OBTUSE MARGINAL ARTERY BALLON ANGIOPLAST AND DRUG-ELUDING STENT PLACEMENT. - LEFT ANTERIOR DESCENDING CORONARY ARTERY BALLON ANGIOPLASTY. - PULMONARY Hx Respiratory Disorders: No - NEUROLOGICAL Hx Neurological Disorder: No - HEENT Hx HEENT Problems: No - RENAL Hx Chronic Kidney Disease: No - ENDOCRINE/METABOLIC Hx Endocrine Disorders: Yes Hx Diabetes Mellitus Type 2: Yes - HEMATOLOGICAL/ONCOLOGICAL Hx Blood Disorders: No - INTEGUMENTARY Hx Dermatological Problems: No - MUSCULOSKELETAL/RHEUMATOLOGICAL Hx Musculoskeletal Disorders: No Hx Falls: No - GASTROINTESTINAL Hx Gastrointestinal Disorders: Yes Hx Gastroesophageal Reflux: Yes - GENITOURINARY/GYNECOLOGICAL Hx Genitourinary Disorders: No - PSYCHIATRIC Hx Psychophysiologic Disorder: No Hx Substance Use: No - SURGICAL HISTORY Hx Surgeries: Yes Hx Angioplasty: Yes Hx Cardiac Catheterization: Yes Hx Coronary Artery Bypass Graft: Yes Hx Coronary Stent: Yes Hx Herniorrhaphy: Yes (LEFT GROIN) - ANESTHESIA Hx Anesthesia: Yes Hx Anesthesia Reactions: No Hx Malignant Hyperthermia: No Meds Allergies/Adverse Reactions: Allergies Allergy/AdvReac Type Severity Reaction Status Date / Time No Known Allergies Allergy Verified 09/22/16 22:29 - Medications Medications: Current Medications Aspirin (Ecotrin) 81 mg PO DAILY [facility] Last Admin: 11/02/16 10:03 Dose: 81 mg Clopidogrel Bisulfate (Plavix) 75 mg PO DAILY [facility] Last Admin: 11/02/16 09:38 Dose: 75 mg Docusate Sodium (Colace) 200 mg PO DAILY [facility] Last Admin: 11/02/16 09:38 Dose: 200 mg Enalapril Maleate (Vasotec) 10 mg PO DAILY [facility] Last Admin: 11/02/16 09:39 Dose: 10 mg Enoxaparin Sodium (Lovenox) 40 mg SC DAILY [facility] Last Admin: 11/02/16 09:39 Dose: 40 mg Famotidine (Pepcid) 20 mg PO BID [facility] Last Admin: 11/02/16 17:36 Dose: 20 mg Isosorbide Mononitrate (Ismo) 20 mg PO Q8 [facility] Last Admin: 11/02/16 15:27 Dose: 20 mg Metformin HCl (Glucophage) 500 mg PO DAILY [facility] Last Admin: 11/02/16 09:39 Dose: 500 mg Metoprolol Tartrate (Lopressor) 100 mg PO BID [facility] Ranolazine (Ranexa) 500 mg PO TID [facility] Last Admin: 11/02/16 17:36 Dose: 500 mg Rosuvastatin Calcium (Crestor) 40 mg PO HS [facility] Results - Vital Signs Recent Vital Signs: Last Vital Signs Temp 98.3 F 11/02/16 15:00 Pulse 59 L 11/02/16 15:56 Resp 20 11/02/16 15:00 BP 125/71 11/02/16 13:00 Pulse Ox 98 11/02/16 15:00 - Labs Result Diagrams: 11/02/16 11:16 11/02/16 11:16 Labs: Laboratory Results - last 24 hr 11/01/16 11/02/16 11/02/16 21:29 06:17 11:16 WBC 6.4 RBC 4.47 Hgb 12.5 Hct 37.8 MCV 84.5 MCH 27.9 MCHC 33.0 RDW 13.8 Plt Count 89 L D MPV 10.1 Neut % (Auto) 60.8 Lymph % (Auto) 13.0 L [place] % (Auto) 21.7 H Eos % (Auto) 3.4 Baso % (Auto) 1.1 Neut # 3.9 Lymph # 0.8 L [place] # 1.4 H Eos # 0.2 Baso # 0.1 Neutrophils % (Manual) 67 Lymphocytes % (Manual) 10 L Monocytes % (Manual) 20 H Eosinophils % (Manual) 3 Platelet Estimate Decreased L Large Platelets Present Giant Platelets Present Hypochromasia (manual) Slight Poikilocytosis (manual Slight Anisocytosis (manual) Slight Ovalocytes Slight Fern Cells Slight Sodium Potassium Chloride Carbon Dioxide Anion Gap BUN Creatinine Est GFR ( Amer) Est GFR (Non-Af Amer) POC Glucose (mg/dL) 200 H 73 Random Glucose Calcium 11/02/16 11/02/16 11/02/16 11:16 11:20 16:50 WBC RBC Hgb Hct MCV MCH MCHC RDW Plt Count MPV Neut % (Auto) Lymph % (Auto) [place] % (Auto) Eos % (Auto) Baso % (Auto) Neut # Lymph # [place] # Eos # Baso # Neutrophils % (Manual) Lymphocytes % (Manual) Monocytes % (Manual) Eosinophils % (Manual) Platelet Estimate Large Platelets Giant Platelets Hypochromasia (manual) Poikilocytosis (manual Anisocytosis (manual) Ovalocytes [place] Cells Sodium 135 Potassium 4.1 Chloride 97 L Carbon Dioxide 30 Anion Gap 12 BUN 13 Creatinine 0.9 Est GFR ( Amer) > 60 Est GFR (Non-Af Amer) > 60 POC Glucose (mg/dL) 186 H 115 H Random Glucose 158 H Calcium 8.7 Assessment & Plan - Assessment and Plan (Free Text) Assessment: 1. CAD/Non ST RI/2 Vessel CAD Chest pain with minimal exertion S/P CABG x 2 (07/2016) SVG to Diag occluded Likely benefit from LAD to Diag intervention Plan for PCI at [facility] as out patient D/W Patient and family 2. DM 2 On Meds 3. HTN/High Narcisa Heart Healthy Diet Medications (Statins/B Blockers)
--- NOTE | 2016-11-03 14:13 | CP.PCM.DIS ---
Provider - Provider Date of Admission: 11/01/16 16:56 Attending physician: Darian Vargas MD Time Spent in preparation of Discharge (in minutes): 30 Hospital Course - Lab Results Lab Results: Most Recent Lab Values WBC 6.4 K/uL (4.8-10.8) 11/02/16 11:16 RBC 4.47 Mil/uL (4.40-5.90) 11/02/16 11:16 Hgb 12.5 g/dL (12.0-18.0) 11/02/16 11:16 Hct 37.8 % (35.0-51.0) 11/02/16 11:16 MCV 84.5 fL (80.0-94.0) 11/02/16 11:16 MCH 27.9 pg (27.0-31.0) 11/02/16 11:16 MCHC 33.0 g/dL (33.0-37.0) 11/02/16 11:16 RDW 13.8 % (11.5-14.5) 11/02/16 11:16 Plt Count 89 K/uL (130-400) L D 11/02/16 11:16 MPV 10.1 fL (7.2-11.7) 11/02/16 11:16 Neut % (Auto) 60.8 % (50.0-75.0) 11/02/16 11:16 Lymph % (Auto) 13.0 % (20.0-40.0) L 11/02/16 11:16 [place] % (Auto) 21.7 % (0.0-10.0) H 11/02/16 11:16 Eos % (Auto) 3.4 % (0.0-4.0) 11/02/16 11:16 Baso % (Auto) 1.1 % (0.0-2.0) 11/02/16 11:16 Neut # 3.9 K/uL (1.8-7.0) 11/02/16 11:16 Lymph # 0.8 K/uL (1.0-4.3) L 11/02/16 11:16 [place] # 1.4 K/uL (0.0-0.8) H 11/02/16 11:16 Eos # 0.2 K/uL (0.0-0.7) 11/02/16 11:16 Baso # 0.1 K/uL (0.0-0.2) 11/02/16 11:16 Neutrophils % (Manual) 67 % (50-75) 11/02/16 11:16 Lymphocytes % (Manual) 10 % (20-40) L 11/02/16 11:16 Monocytes % (Manual) 20 % (0-10) H 11/02/16 11:16 Eosinophils % (Manual) 3 % (0-4) 11/02/16 11:16 Platelet Estimate Decreased (NORMAL) L 11/02/16 11:16 Large Platelets Present 11/02/16 11:16 Giant Platelets Present 11/02/16 11:16 Hypochromasia (manual) Slight 11/02/16 11:16 Poikilocytosis (manual Slight 11/02/16 11:16 Anisocytosis (manual) Slight 11/02/16 11:16 Ovalocytes Slight 11/02/16 11:16 Fern Cells Slight 11/02/16 11:16 Sodium 135 mmol/L (132-148) 11/02/16 11:16 Potassium 4.1 mmol/L (3.6-5.2) 11/02/16 11:16 Chloride 97 mmol/L (98-107) L 11/02/16 11:16 Carbon Dioxide 30 mmol/L (22-30) 11/02/16 11:16 Anion Gap 12 (10-20) 11/02/16 11:16 BUN 13 mg/dL (9-20) 11/02/16 11:16 Creatinine 0.9 MG/DL (0.8-1.5) 11/02/16 11:16 Est GFR ( Amer) > 60 11/02/16 11:16 Est GFR (Non-Af Amer) > 60 11/02/16 11:16 POC Glucose (mg/dL) 115 mg/dL (65-110) H 11/02/16 16:50 Random Glucose 158 mg/dL (75-110) H 11/02/16 11:16 Calcium 8.7 mg/dl (8.6-10.4) 11/02/16 11:16 - Hospital Course Hospital Course: PT ADMITTED AFTER CARDIAC CATH PT IS S/P CABG , MACKEY TO LAD AND SVG TO DIAG. AND STENT IN POX RCA . PT HAS CP ON MINIMAL EXERTION AND HAD A HIGHLY POS IV LEXISCAN MYOVIEW TEST IN ANT .ANT LATERAL WITH ST DEPRESSION PT HAS PATENT MACKEY AND OCCLUDRD SVG TO IDAG AND NORMAL STENT IN RCA . LV GRAM NOT DONE . IN VIEW OF PERSISTENT CP , PT WAS ADMITTED FOR FURTHER EVAL PAST HIST. CAD/STENT/CABG/THROMBOCYTOPENIA /HTN DR. MICHAEL, IC WAS CONSULTED MEDICAL THERAPY WAS MAXIMIZE PT WAS D/C HOME , NO EXERTION AND F/U ON 11/05 IN [facility] , DR. MOHR FOR FURTHER INTERVENTION Discharge Plan - Follow Up Plan Condition: GOOD Disposition: HOME/ ROUTINE Instructions: Angina (DC), Coronary Artery Disease (DC) Additional Instructions: Follow up with Dr. Vargas in one week. Continue home meds. Referrals: Darian Vargas MD [Staff Provider] -
== END 2016-11-02 20:45 | disposition home or self-care (01) | DRG 287 ==
LOC: C.CATHLAB 13:37 → C.6T 16:56
PROVIDERS: ADMIT Internal Medicine Cardiovascular Disease; ATTEND Internal Medicine Cardiovascular Disease
PROC: B2051ZZ Plain Radiography of Left Heart using Low Osmolar Contrast (ICD-10-PCS; 2016-11-01)
PROC: B2011ZZ Plain Radiography of Multiple Coronary Arteries using Low Osmolar Contrast (ICD-10-PCS; 2016-11-01)
PROC: 4A023N7 Measurement of Cardiac Sampling and Pressure, Left Heart, Percutaneous Approach (ICD-10-PCS; principal; 2016-11-01 15:30)
DX: I25.110 Atherosclerotic heart disease of native coronary artery with unstable angina pectoris (principal); D69.6 Thrombocytopenia, unspecified; I25.2 Old myocardial infarction; E11.9 Type 2 diabetes mellitus without complications; E78.00 Pure hypercholesterolemia, unspecified; I10 Essential (primary) hypertension; K21.9 Gastro-esophageal reflux disease without esophagitis; Z87.891 Personal history of nicotine dependence; Z95.1 Presence of aortocoronary bypass graft; Z79.4 Long term (current) use of insulin

== ENCOUNTER 2017-11-21 15:17 | Observation (INO) | payer MEDICARE ==
[2017-11-21 15:17] VITALS: BMI 25.1
--- NOTE | 2017-11-21 15:57 | C.PDOC ---
History Of Present Illness 71 y/o M c PMHx HTN, HLD, DM, CAD s/p CABG and stent p/w chest pain x 4 hours. Pain began at rest after eating sandwich, nonradiating, associated with palpitations, felt like "gas" but without improvement after "gas pill." Patient continued to worsen but after taking nitrospray 30 minutes ago, almost gone now. Denies fever, chills, dyspnea, nausea, vomiting, diaphoresis, leg swelling. Time Seen by Provider: 11/21/17 15:33 Chief Complaint (Nursing): Chest Pain Past Medical History Vital Signs: Last Vital Signs Temp 98.4 F 11/21/17 15:24 Pulse 144 H 11/21/17 15:24 Resp 18 11/21/17 15:24 BP 133/78 11/21/17 15:24 Pulse Ox 97 11/21/17 16:20 - Medical History PMH: Diabetes, HTN, Hypercholesterolemia Denies: Chronic Kidney Disease Surgical History: CABG, Coronary Stent - [facility] Procedures DILATION OF 1 COR ART WITH DRUG-ELUT INTRA, PERC APPROACH (07/20/16) DILATION OF CORONARY ARTERY, TWO ARTERIES, PERC APPROACH (07/20/16) MEASURE OF CARDIAC SAMPL & PRESSURE, L HEART, PERC APPROACH (11/01/16) PLAIN RADIOGRAPHY OF LEFT HEART USING LOW OSMOLAR CONTRAST (11/01/16) PLAIN RADIOGRAPHY OF LEFT HEART USING OTHER CONTRAST (07/20/16) PLAIN RADIOGRAPHY OF MULT COR ART USING L OSM CONTRAST (11/01/16) PLAIN RADIOGRAPHY OF MULT COR ART USING OTH CONTRAST (07/20/16) Family History: States: Unknown Family Hx - Social History Hx Tobacco Use: No Hx Alcohol Use: No Hx Substance Use: No - Immunization History Hx Tetanus Toxoid Vaccination: No Hx Influenza Vaccination: Yes Hx Pneumococcal Vaccination: No Review Of Systems Except As Marked, All Systems Reviewed And Found Negative. Constitutional: Negative for: Fever Respiratory: Negative for: Shortness of Breath Physical Exam - Physical Exam Additional Physical Exam Comments: Constitutional: No acute distress. Head: Normocephalic. Atraumatic. Eyes: PERRL. ENT: Moist mucous membranes. Neck: Supple. Cardiovascular: Borderline tachycardic. Radial pulse 2+ bilaterally. Chest: Midline sternotomy scar. Respiratory: Clear to auscultation bilaterally. GI: Soft. Nontender. Back: No CVA tenderness. Musculoskeletal: No tenderness or swelling of extremities. Skin: No rash. Neurologic: Alert, no focal deficit. ED Course And Treatment - Laboratory Results Result Diagrams: 11/21/17 16:04 11/21/17 16:04 O2 Sat by Pulse Oximetry: 97 Medical Decision Making Medical Decision Making: EKG Afib, 144 bpm, no ST elevations. Upon arrival at patient's bedside, rate now 102 bpm. Aspirin administered. CXR No active pulmonary disease. Dr. Vargas accepts patient to his service for cardiac observation. Disposition - Disposition Disposition: HOSPITALIZED Disposition Time: 17:00 Condition: FAIR - POA Core Measure Indicators: Chest Pain - Clinical Impression Clinical Impression: Chest pain
[2017-11-21 16:18] LABS: BASO # 0.1 K/uL (0.0-0.2); BASO % 0.7 % (0.0-2.0); EOS # 0.2 K/uL (0.0-0.7); EOS % 1.7 % (0.0-4.0); HEMOGLOBIN 13.8 g/dL (12.0-18.0); LYMPH # 0.9 K/uL (1.0-4.3); MEAN CELL VOLUME 83.1 fL (80.0-94.0); MEAN CORPUSCULAR HEMOGLOBIN 28.2 pg (27.0-31.0); MEAN PLATELET VOLUME 10.7 fL (7.2-11.7); MONO # 1.4 K/uL (0.0-0.8); MONO % 15.3 % (0.0-10.0); NEUT # 6.8 K/uL (1.8-7.0); NEUT % 72.3 % (50.0-75.0); NRBC % 0.1 % (0.0-2.0); RBC 4.9 Mil/uL (4.40-5.90); RED CELL DISTRIBUTION WIDTH 13.1 % (11.5-14.5); WHITE BLOOD COUNT 9.3 K/uL (4.8-10.8)
--- NOTE | 2017-11-21 16:18 | RAD ---
HISTORY: Chest pain COMPARISON: 09/28/2016. FINDINGS: LUNGS: The lungs are well inflated and clear. PLEURA: No significant pleural effusion identified, no pneumothorax apparent. CARDIOVASCULAR: The heart is normal in size. Status post median sternotomy. OSSEOUS STRUCTURES: No significant abnormalities. VISUALIZED UPPER ABDOMEN: Normal. OTHER FINDINGS: None. IMPRESSION: No active pulmonary disease.
[2017-11-21 16:23] LABS: ALB/GLOB RATIO 1.2 (1.0-2.1); ALBUMIN 4.4 g/dL (3.5-5.0); ALT/SGPT 22 U/L (21-72); AST/SGOT 34 U/L (17-59); BLOOD UREA NITROGEN 16 mg/dL (9-20); CALCIUM 9.5 mg/dl (8.6-10.4); GFR AFRICAN-AMERICAN > 60; GFR NON-AFRICAN AMERICAN > 60
[2017-11-21 16:32] LABS: CK-MB 0.71 ng/mL (0.0-3.38)
[2017-11-21 18:56] VITALS: RESP 20
--- NOTE | 2017-11-21 20:17 | CP.PCM.HP ---
History of Present Illness - History of Present Illness History of Present Illness: COMPREHENSIVE HISTORY & PHYSICAL EXAM HPI Patient developed chest pain associated with palpitations and this morning. Patient presented to [facility] emergency room. Patient had atrial fibrillation with rapid ventricular rate patient responded with IV medication. EKG did not show any ST elevations. Patient is now admitted for observation PAST HIST. Patient has history of coronary artery bypass surgery. Subsequently patient had 3 stents and atherectomy at [facility] in [place]. Recently patient was evaluated in outpatient with no inducible ischemia on stress test. Patient has history of type II diabetes hypertension and anxiety disorder PERSONAL HIST: Smoking. N Alcohol. N Allergy N Travel_- . FAMILY HIST : ROS : Constitutional: Negative for weight change, chills, night sweats, fatigue and usage of assist device. Eyes: Negative for redness, swelling, itching, discharge, vision changes, blurry vision, double vision, glaucoma, cataracts, Ears: Negative for hearing loss, ringing, , tinnitus, vertigo Nose: Negative for rhinorrhea, stuffiness, sniffing, itching, postnasal drip, discoloration, nasal congestion and epistaxis. Throat: Negative for throat clearing, sore throat, hoarseness, difficulty swallowing and difficulty speaking. Respiratory: Negative for cough, chest tightness, sputum or phlegm, chronic cough, hemoptysis, wheezing, snoring at night, pleuritic chest pain and daytime somnolence. Cardiovascular: Negative, Edema of legs, leg cramps, angina, claudication, , irregular heartbeat, Neurology: Negative for irritability, muscle weakness, numbness and tingling, seizures, tremors, migraines, slurred speech, syncope, memory loss, mood changes , recurrent headaches Gastrointestinal: Negative for difficulty swallowing, diarrhea, constipation, black stools, rectal bleeding, nausea, flatulence, reflux, poor appetite, changes in bowel habits, abdominal pain Genitourinary: Negative for frequent urination, hematuria, discharge, incontinence, urinary retention, frequent UTI, Psychiatric: Negative for depression, anxiety/panic, suicidal tendencies, Musculoskeletal: Negative for swollen joints, back pain, , neck pain, morning stiffness of joints, . Skin: Negative for rash, ulcers, itching, dry skin and pigmented lesions. P/E: Constitutional: Appears stated age and in no apparent distress. Head: Normocephalic. Ears: External ear canals patent without inflammation. Tympanic membranes intact with normal light reflex and landmark. Eyes: Pupils are central, bilaterally equal, symmetrical and reacts to light with normal movements and no icterus or pallor. Nose: External nares are patent. Mucosa is pink Mouth-Throat: Good general appearance and condition. No post-pharyngeal/oropharyngeal erythema and tonsillar hypertrophy. Good dental hygiene. Neck-Lymphatic: Neck is supple with normal ROM, no thyromegaly, lymph nodes or masses. JVD is normal with no carotid bruit. Lungs: Clear to percussion and auscultation with bilateral normal air entry. Cardiovascular: S1 and S2 are normal with no murmurs, gallops and rub. GI Exam: No hepatomegaly. Abdomen is soft and non-tender. No Organomegaly , masses or hernias are evident and bowel sounds are normal and active. Neurology: Higher function and all cranial nerves intact, with no gross motor or sensory deficit. Superficial and deep reflexes are normal with downwards planters. No cerebellar deficit with normal gait. Musculoskeletal: No tender spots with normal curvature of the spine with no swelling or restricted ROM of the small and large joints. Extremities: Homans sign absent. Intact pulses with no pitting edema, calf tenderness or skin color changes. Skin: No rash, eruptions or abnormal skin pigmentation LAB/RADIOLOGY: ASSESMENT : Atrial fibrillation with rapid ventricular rate. We will continue the beta blockers as patient is not converted to normal sinus rhythm. Patient is currently taking Eliquis will continue the same medicine. Chest pain with history of coronary artery disease with multiple stents and atherectomy. Currently there is no evidence of any acute ischemia. Will continue monitoring and do serial cardiac enzymes. Type II diabetes stable hypertension stable Present on Admission - Present on Admission Any Indicators Present on Admission: No Past Patient History - Infectious Disease Hx of Infectious Diseases: None - Past Medical History & Family History Past Medical History?: Yes - Past Social History Smoking Status: Former Smoker - CARDIAC Hx Hypercholesterolemia: Yes Hx Hypertension: Yes - PULMONARY Hx Respiratory Disorders: No - NEUROLOGICAL Hx Neurological Disorder: No - HEENT Hx HEENT Problems: No - RENAL Hx Chronic Kidney Disease: No - ENDOCRINE/METABOLIC Hx Endocrine Disorders: Yes Hx Diabetes Mellitus Type 2: Yes - HEMATOLOGICAL/ONCOLOGICAL Hx Blood Disorders: No - INTEGUMENTARY Hx Dermatological Problems: No - MUSCULOSKELETAL/RHEUMATOLOGICAL Hx Musculoskeletal Disorders: No Hx Falls: No - GASTROINTESTINAL Hx Gastrointestinal Disorders: Yes Hx Gastroesophageal Reflux: Yes - GENITOURINARY/GYNECOLOGICAL Hx Genitourinary Disorders: No - PSYCHIATRIC Hx Substance Use: No - SURGICAL HISTORY Hx Coronary Artery Bypass Graft: Yes Hx Coronary Stent: Yes - ANESTHESIA Hx Anesthesia: Yes Hx Anesthesia Reactions: No Hx Malignant Hyperthermia: No Meds Allergies/Adverse Reactions: Allergies Allergy/AdvReac Type Severity Reaction Status Date / Time No Known Allergies Allergy Verified 11/21/17 15:26 Results - Vital Signs Recent Vital Signs: Last Vital Signs Temp 98.1 F 11/21/17 18:45 Pulse 71 11/21/17 18:45 Resp 20 11/21/17 18:45 BP 131/68 11/21/17 18:45 Pulse Ox 98 11/21/17 18:45 - Labs Result Diagrams: 11/21/17 16:04 11/21/17 16:04 Labs: Laboratory Results - last 24 hr 11/21/17 11/21/17 16:04 16:04 WBC 9.3 RBC 4.90 Hgb 13.8 Hct 40.7 MCV 83.1 MCH 28.2 MCHC 34.0 RDW 13.1 Plt Count 84 L MPV 10.7 Neut % (Auto) 72.3 Lymph % (Auto) 10.0 L Mcdowell % (Auto) 15.3 H Eos % (Auto) 1.7 Baso % (Auto) 0.7 Neut # (Auto) 6.8 Lymph # (Auto) 0.9 L Mcdowell # (Auto) 1.4 H Eos # (Auto) 0.2 Baso # (Auto) 0.1 Differential Comment Sodium 138 Potassium 4.0 Chloride 102 Carbon Dioxide 23 Anion Gap 17 BUN 16 Creatinine 1.0 Est GFR ( Amer) > 60 Est GFR (Non-Af Amer) > 60 Random Glucose 142 H Calcium 9.5 Total Bilirubin 0.7 AST 34 ALT 22 Alkaline Phosphatase 88 Total Creatine Kinase 108 CK-MB (Mass) 0.71 Troponin I < 0.0120 Total Protein 8.0 Albumin 4.4 Globulin 3.6 Albumin/Globulin Ratio 1.2
[2017-11-21] MEDS: (Novolin R) Insulin Human Regular 100 units/ml vial SC SCH (22:03)
[2017-11-22 01:28] LABS: CK-MB 0.91 ng/mL (0.0-3.38)
[2017-11-22] MEDS: (Novolin R) Insulin Human Regular 100 units/ml vial SC SCH ×4 (07:29→21:45)
[2017-11-22 09:13] LABS: CK-MB 0.76 ng/mL (0.0-3.38)
[2017-11-22] MEDS: Pantoprazole 40 mg EC Tab PO SCH (09:40)
--- NOTE | 2017-11-22 14:24 | CP.PCM.PN ---
Subjective - Date & Time of Evaluation Date of Evaluation: 11/22/17 Time of Evaluation: 14:21 - Subjective Subjective: CHIEF COMPLAINTS TODAY : patient has no further chest pain or palpitation Patient has converted to normal sinus rhythm ROS. HEENT : N. Resp : No cough, wheezing ,pleuritic CP ,or hemoptysis Cardio : No anginal CP, PND, orthopnea, palpitation GI : No abd.pain, n/v ,diarrhea or GI bleeding . 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 Musculoskel : No joint swelling , Derm : No rash Psych : Normal affect. Ext : No swelling ,calf pain PE. Pt. is alert awake in no distress. V.S As noted in the chart Head ,ear nose,throat and eyes : Normal. Neck : Supple with normal carotids. Lungs: Clear air entry. Heart : S1 & S2 normal with S4. No murmur. Abd : Soft non tender with normal bowel sounds. Neuro : Moves all ext. with no localized deficit. Ext : No edema with intact pulses.Non tender calves Derm : No rashes or decubitus ulcer. LABS/RADIOLOGY: cardiac enzymes TNI's are negative ASSESSMENT/PLAN : continue another 24-hour observation Continue present medications for coronary artery disease Patient may need outpatient stress test Objective - Vital Signs/Intake and Output Vital Signs (last 24 hours): Temp Pulse Resp BP Pulse Ox 97.7 F 68 20 122/72 98 11/22/17 07:59 11/22/17 09:07 11/22/17 07:59 11/22/17 09:39 11/22/17 09:07 Intake and Output: 11/22/17 11/22/17 11:59 23:59 Intake Total 120 Balance 120 - Medications Medications: Current Medications Aspirin (Ecotrin) 81 mg PO DAILY [facility] Last Admin: 11/22/17 09:40 Dose: 81 mg Clopidogrel Bisulfate (Plavix) 75 mg PO DAILY [facility] Last Admin: 11/22/17 09:40 Dose: 75 mg Docusate Sodium (Colace) 200 mg PO HS [facility] Last Admin: 11/21/17 22:43 Dose: 200 mg Enalapril Maleate (Vasotec) 10 mg PO DAILY [facility] Last Admin: 11/22/17 09:39 Dose: 10 mg Insulin Human Regular (Novolin R) 1 unit SC [facility] PRN Reason: Protocol Last Admin: 11/22/17 12:20 Dose: Not Given Metformin HCl (Glucophage) 500 mg PO DAILY [facility] Last Admin: 11/22/17 09:39 Dose: 500 mg Metoprolol Tartrate (Lopressor) 100 mg PO DAILY [facility] Last Admin: 11/22/17 09:40 Dose: 100 mg Nitroglycerin (Nitrostat Sl Tab) 0.4 mg SL Q5MIN PRN PRN Reason: Other Pantoprazole Sodium (Protonix Ec Tab) 40 mg PO DAILY [facility] Last Admin: 11/22/17 09:40 Dose: 40 mg Rosuvastatin Calcium (Crestor) 40 mg PO HS [facility] Last Admin: 11/21/17 22:43 Dose: 40 mg Tamsulosin HCl (Flomax) 0.4 mg PO [facility] Last Admin: 11/21/17 22:43 Dose: 0.4 mg - Labs Labs: 11/21/17 16:04 11/21/17 16:04
[2017-11-22] MEDS: Enoxaparin 30 mg Syringe SC SCH (21:43)
[2017-11-23] MEDS: (Novolin R) Insulin Human Regular 100 units/ml vial SC SCH ×4 (08:30→22:16)
[2017-11-23] MEDS: Enoxaparin 30 mg Syringe SC SCH ×2 (10:36→22:16)
[2017-11-23] MEDS: Pantoprazole 40 mg EC Tab PO SCH (10:38)
--- NOTE | 2017-11-23 15:34 | CP.PCM.PN ---
Subjective - Date & Time of Evaluation Date of Evaluation: 11/23/17 Time of Evaluation: 15:34 - Subjective Subjective: CHIEF COMPLAINTS TODAY : patient has no further chest pain or palpitation Patient has converted to normal sinus rhythm ROS. HEENT : N. Resp : No cough, wheezing ,pleuritic CP ,or hemoptysis Cardio : No anginal CP, PND, orthopnea, palpitation GI : No abd.pain, n/v ,diarrhea or GI bleeding . 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 Musculoskel : No joint swelling , Derm : No rash Psych : Normal affect. Ext : No swelling ,calf pain PE. Pt. is alert awake in no distress. V.S As noted in the chart Head ,ear nose,throat and eyes : Normal. Neck : Supple with normal carotids. Lungs: Clear air entry. Heart : S1 & S2 normal with S4. No murmur. Abd : Soft non tender with normal bowel sounds. Neuro : Moves all ext. with no localized deficit. Ext : No edema with intact pulses.Non tender calves Derm : No rashes or decubitus ulcer. LABS/RADIOLOGY: cardiac enzymes TNI's are negative ASSESSMENT/PLAN : CURRENTLY PATIENT IS STABLE CARDIAC STATUS. iF STABLE WILL DISCHARGE IN A.M. AND GET OUTPATIENT STRESS TEST Objective - Vital Signs/Intake and Output Vital Signs (last 24 hours): Temp Pulse Resp BP Pulse Ox 97.6 F 65 20 175/88 H 98 11/23/17 07:07 11/23/17 12:21 11/23/17 07:07 11/23/17 12:21 11/23/17 12:21 - Medications Medications: Current Medications Aspirin (Ecotrin) 81 mg PO DAILY [facility] Last Admin: 11/23/17 10:36 Dose: 81 mg Clopidogrel Bisulfate (Plavix) 75 mg PO DAILY [facility] Last Admin: 11/23/17 10:33 Dose: 75 mg Docusate Sodium (Colace) 200 mg PO HS [facility] Last Admin: 11/22/17 21:42 Dose: 200 mg Enalapril Maleate (Vasotec) 10 mg PO DAILY [facility] Last Admin: 11/23/17 10:33 Dose: 10 mg Enoxaparin Sodium (Lovenox) 30 mg SC Q12 [facility] Last Admin: 11/23/17 10:36 Dose: 30 mg Insulin Human Regular (Novolin R) 1 unit SC [facility] PRN Reason: Protocol Last Admin: 11/23/17 12:30 Dose: Not Given Metformin HCl (Glucophage) 500 mg PO DAILY [facility] Last Admin: 11/23/17 10:33 Dose: 500 mg Metoprolol Tartrate (Lopressor) 100 mg PO DAILY [facility] Last Admin: 11/23/17 10:33 Dose: 100 mg Nitroglycerin (Nitrostat Sl Tab) 0.4 mg SL Q5MIN PRN PRN Reason: Other Pantoprazole Sodium (Protonix Ec Tab) 40 mg PO DAILY [facility] Last Admin: 11/23/17 10:38 Dose: 40 mg Rosuvastatin Calcium (Crestor) 40 mg PO HS [facility] Last Admin: 11/22/17 21:42 Dose: 40 mg Tamsulosin HCl (Flomax) 0.4 mg PO HS [facility] Last Admin: 11/22/17 21:42 Dose: 0.4 mg - Labs Labs: 11/21/17 16:04 11/21/17 16:04
[2017-11-24] MEDS: (Novolin R) Insulin Human Regular 100 units/ml vial SC SCH (08:10)
[2017-11-24 08:46] VITALS: BP 122/72; PULSE 52; TEMP 97.9; O2SAT 96
[2017-11-24] MEDS: Pantoprazole 40 mg EC Tab PO SCH (10:56)
[2017-11-24] MEDS: Enoxaparin 30 mg Syringe SC SCH (10:56)
--- NOTE | 2017-11-24 13:00 | CP.PCM.DIS ---
Provider - Provider Date of Admission: 11/21/17 17:01 Attending physician: Darian Vargas MD Time Spent in preparation of Discharge (in minutes): 35 Hospital Course - Lab Results Lab Results: Most Recent Lab Values WBC 9.3 K/uL (4.8-10.8) 11/21/17 16:04 RBC 4.90 Mil/uL (4.40-5.90) 11/21/17 16:04 Hgb 13.8 g/dL (12.0-18.0) 11/21/17 16:04 Hct 40.7 % (35.0-51.0) 11/21/17 16:04 MCV 83.1 fL (80.0-94.0) 11/21/17 16:04 MCH 28.2 pg (27.0-31.0) 11/21/17 16:04 MCHC 34.0 g/dL (33.0-37.0) 11/21/17 16:04 RDW 13.1 % (11.5-14.5) 11/21/17 16:04 Plt Count 84 K/uL (130-400) L 11/21/17 16:04 MPV 10.7 fL (7.2-11.7) 11/21/17 16:04 Neut % (Auto) 72.3 % (50.0-75.0) 11/21/17 16:04 Lymph % (Auto) 10.0 % (20.0-40.0) L 11/21/17 16:04 Starr % (Auto) 15.3 % (0.0-10.0) H 11/21/17 16:04 Eos % (Auto) 1.7 % (0.0-4.0) 11/21/17 16:04 Baso % (Auto) 0.7 % (0.0-2.0) 11/21/17 16:04 Neut # (Auto) 6.8 K/uL (1.8-7.0) 11/21/17 16:04 Lymph # (Auto) 0.9 K/uL (1.0-4.3) L 11/21/17 16:04 Starr # (Auto) 1.4 K/uL (0.0-0.8) H 11/21/17 16:04 Eos # (Auto) 0.2 K/uL (0.0-0.7) 11/21/17 16:04 Baso # (Auto) 0.1 K/uL (0.0-0.2) 11/21/17 16:04 Differential Comment 11/21/17 16:04 Sodium 138 mmol/L (132-148) 11/21/17 16:04 Potassium 4.0 mmol/L (3.6-5.2) 11/21/17 16:04 Chloride 102 mmol/L (98-107) 11/21/17 16:04 Carbon Dioxide 23 mmol/L (22-30) 11/21/17 16:04 Anion Gap 17 (10-20) 11/21/17 16:04 BUN 16 mg/dL (9-20) 11/21/17 16:04 Creatinine 1.0 mg/dL (0.8-1.5) 11/21/17 16:04 Est GFR ( Amer) > 60 11/21/17 16:04 Est GFR (Non-Af Amer) > 60 11/21/17 16:04 POC Glucose (mg/dL) 95 mg/dL (65-110) 11/24/17 07:00 Random Glucose 142 mg/dL (75-110) H 11/21/17 16:04 Calcium 9.5 mg/dl (8.6-10.4) 11/21/17 16:04 Total Bilirubin 0.7 mg/dL (0.2-1.3) 11/21/17 16:04 AST 34 U/L (17-59) 11/21/17 16:04 ALT 22 U/L (21-72) 11/21/17 16:04 Alkaline Phosphatase 88 U/L (38-126) 11/21/17 16:04 Total Creatine Kinase 83 U/L (55-170) 11/22/17 08:37 CK-MB (Mass) 0.76 ng/mL (0.0-3.38) 11/22/17 08:37 Troponin I < 0.0120 ng/mL (0.00-0.120) 11/22/17 08:37 Total Protein 8.0 g/dL (6.3-8.3) 11/21/17 16:04 Albumin 4.4 g/dL (3.5-5.0) 11/21/17 16:04 Globulin 3.6 gm/dL (2.2-3.9) 11/21/17 16:04 Albumin/Globulin Ratio 1.2 (1.0-2.1) 11/21/17 16:04 - Hospital Course Hospital Course: Patient developed chest pain associated with palpitations and this morning. Patient presented to [facility] emergency room. Patient had atrial fibrillation with rapid ventricular rate patient responded with IV medication. EKG did not show any ST elevations. Patient is now admitted for observation PAST HIST. Patient has history of coronary artery bypass surgery. Subsequently patient had 3 stents and atherectomy at [facility] in [place]. Recently patient was evaluated in outpatient with no inducible ischemia on stress test. Patient has history of type II diabetes hypertension and anxiety disorder Patient was observed on the telemetry bed. Patient converted to normal sinus rhythm and then subsequently sinus bradycardia in the range of 47 in the evening hours All sets of cardiac enzymes were negative Patient currently stable with no chest pain shortness of breath or palpitation Patient will be discharged will be followed as outpatient and plan for anticoagulation. Discharge Plan - Follow Up Plan Condition: FAIR Disposition: HOME/ ROUTINE
--- NOTE | 2017-11-25 12:09 | CARD ---
APPROVED REPORT EKG Measurement Heart [id number] <Conclusion> Atrial fibrillation with rapid ventricular response Nonspecific ST abnormality Abnormal ECG
== END 2017-11-24 14:23 | disposition home or self-care (01) ==
LOC: C.ER 15:17 → C.9E 17:01 → C.6T 17:58
PROVIDERS: ADMIT Internal Medicine Cardiovascular Disease; ATTEND Internal Medicine Cardiovascular Disease
DX: I48.91 Unspecified atrial fibrillation (principal); E78.00 Pure hypercholesterolemia, unspecified; E78.5 Hyperlipidemia, unspecified; I10 Essential (primary) hypertension; I25.10 Atherosclerotic heart disease of native coronary artery without angina pectoris; F41.9 Anxiety disorder, unspecified; Z95.5 Presence of coronary angioplasty implant and graft; K21.9 Gastro-esophageal reflux disease without esophagitis; Z87.891 Personal history of nicotine dependence; Z95.1 Presence of aortocoronary bypass graft; E11.9 Type 2 diabetes mellitus without complications
CPT/HCPCS: 36415; 71045; 80053; 82550; 82553; 82948; 84484; 85025; 93005; 96372; 97162; 99285; G0378; G8978; G8979; G8980; J1650

== ENCOUNTER 2018-01-29 20:42 | Observation (INO) | payer MEDICARE ==
[2018-01-29 20:43] VITALS: BMI 25.1
[2018-01-29 21:18] LABS: BASO % 0.3 % (0.0-2.0); EOS # 0.2 K/uL (0.0-0.7); EOS % 1.8 % (0.0-4.0); HEMOGLOBIN 13.9 g/dL (12.0-18.0); LYMPH # 1.1 K/uL (1.0-4.3); LYMPH % 11.7 % (20.0-40.0); MEAN CELL VOLUME 85.6 fL (80.0-94.0); MEAN CORPUSCULAR HEMOGLOBIN 28.6 pg (27.0-31.0); MEAN CORPUSCULAR HGB CONC 33.4 g/dL (33.0-37.0); MEAN PLATELET VOLUME 10.3 fL (7.2-11.7); MONO # 1.9 K/uL (0.0-0.8); MONO % 20.3 % (0.0-10.0); NEUT # 6.2 K/uL (1.8-7.0); NEUT % 65.9 % (50.0-75.0); PLATELET COUNT 85 K/uL (130-400); RBC 4.84 Mil/uL (4.40-5.90); RED CELL DISTRIBUTION WIDTH 13.4 % (11.5-14.5); WHITE BLOOD COUNT 9.4 K/uL (4.8-10.8)
[2018-01-29 21:31] LABS: INR 1.3; PROTHROMBIN TIME 13.8 SECONDS (9.7-12.2)
[2018-01-29 21:34] LABS: ALB/GLOB RATIO 1.2 (1.0-2.1); ALBUMIN 4.4 g/dL (3.5-5.0); CALCIUM 9.7 mg/dl (8.6-10.4); GFR NON-AFRICAN AMERICAN > 60
[2018-01-29 21:37] LABS: ALT/SGPT 23 U/L (21-72); AST/SGOT 30 U/L (17-59); BLOOD UREA NITROGEN 12 mg/dL (9-20)
[2018-01-29] MEDS ORDERED: Aspirin 325 mg EC Tablets PO STA (21:40)
[2018-01-29] MEDS ORDERED: Aspirin 325 mg EC Tablets PO ONE (21:49)
[2018-01-29 22:14] LABS: EOSINOPHIL 1 % (0-4); LYMPHOCYTE 11 % (20-40); MONOCYTE 18 % (0-10); NEUTROPHIL 70 % (50-75); PLATELET ESTIMATE DECREASED (NORMAL); TOTAL CELLS COUNTED 100
[2018-01-30] MEDS ORDERED: Pneumococcal 23-Valent Vaccine IM ONE ×2 (01:26→10:00)
--- NOTE | 2018-01-30 04:39 | C.PDOC ---
History Of Present Illness 72-year-old male presents to the ED for evaluation of chest pain which occurred while carrying groceries up a set of steps. Patient notes his pain was substernal, dull in nature and lasted about one hour. He denies any symptoms currently, as well as fever, chills, cough, shortness of breath. Chief Complaint (Nursing): Chest Pain History Per: Patient History/Exam Limitations: no limitations Onset/Duration Of Symptoms: Hrs (1) Current Symptoms Are (Timing): Better Quality: Dull, "Pain" Additional History Per: Patient Past Medical History Reviewed: Historical Data, Nursing Documentation, Vital Signs Vital Signs: Last Vital Signs Temp 97.6 F 01/30/18 04:00 Pulse 67 01/30/18 04:42 Resp 20 01/30/18 04:00 BP 107/64 01/30/18 04:00 Pulse Ox 99 01/30/18 04:51 - Medical History PMH: Diabetes, HTN, Hypercholesterolemia Denies: Chronic Kidney Disease Surgical History: CABG (quadruple bypass), Coronary Stent - [facility] Procedures DILATION OF 1 COR ART WITH DRUG-ELUT INTRA, [facility] APPROACH (07/20/16) DILATION OF CORONARY ARTERY, TWO ARTERIES, PERC APPROACH (07/20/16) MEASURE OF CARDIAC SAMPL & PRESSURE, L HEART, PERC APPROACH (11/01/16) PLAIN RADIOGRAPHY OF LEFT HEART USING LOW OSMOLAR CONTRAST (11/01/16) PLAIN RADIOGRAPHY OF LEFT HEART USING OTHER CONTRAST (07/20/16) PLAIN RADIOGRAPHY OF MULT COR ART USING L OSM CONTRAST (11/01/16) PLAIN RADIOGRAPHY OF MULT COR ART USING OTH CONTRAST (07/20/16) Family History: States: Unknown Family Hx - Social History Hx Tobacco Use: No Hx Alcohol Use: No Hx Substance Use: No - Immunization History Hx Tetanus Toxoid Vaccination: No Hx Influenza Vaccination: Yes Hx Pneumococcal Vaccination: No Review Of Systems Constitutional: Negative for: Fever, Chills Cardiovascular: Positive for: Chest Pain Respiratory: Negative for: Cough, Shortness of Breath Physical Exam - Physical Exam Appears: Non-toxic, No Acute Distress Skin: Normal Color, Warm, Dry Head: Atraumatic, Normacephalic Eye(s): bilateral: Normal Inspection Oral Mucosa: Moist Neck: Supple Chest: Symmetrical, No Deformity, No Tenderness Cardiovascular: Rhythm Regular, No Murmur Respiratory: Normal Breath Sounds, No Rales, No Rhonchi, No Wheezing Extremity: Normal ROM, Capillary Refill (less than 2 seconds ) Neurological/Psych: Oriented x3, Normal Speech, Normal Cognition ED Course And Treatment - Laboratory Results Result Diagrams: 01/29/18 21:14 01/29/18 21:14 ECG Rhythm: Sinus Bradycardia Rate From EC O2 Sat by Pulse Oximetry: 99 (on RA ) Pulse Ox Interpretation: Normal Medical Decision Making Medical Decision Making: Impression: 72 year old male with chest pain Progress: Bloodwork, CXR, EKG ordered and reviewed. Aspirin PO given. Case discussed with Dr. Vargas ( patient's PMD). Patient will be admitted to telemetry for observation. Disposition - Disposition Disposition: HOSPITALIZED Disposition Time: 22:15 Condition: STABLE - Clinical Impression Clinical Impression: Chest pain - Scribe Statement The provider has reviewed the documentation as recorded by the Scribe (Alexa Pitts) Provider Attestation: All medical record entries made by the Scribe were at my direction and personally dictated by me. I have reviewed the chart and agree that the record accurately reflects my personal performance of the history, physical exam, medical decision making, and the department course for this patient. I have also personally directed, reviewed, and agree with the discharge instructions and disposition.
[2018-01-30 05:52] VITALS: RESP 20
[2018-01-30 06:12] LABS: CK-MB 0.52 ng/mL (0.0-3.38)
[2018-01-30] MEDS: (Novolin R) Insulin Human Regular 100 units/ml vial SC SCH ×2 (08:00→17:33)
--- NOTE | 2018-01-30 08:25 | RAD ---
Date of service: 01/29/2018 PROCEDURE: CHEST RADIOGRAPH, 1 VIEW HISTORY: chest pain COMPARISON: 11/21/2017 FINDINGS: LUNGS: The lungs are well inflated and clear. PLEURA: No pneumothorax or pleural fluid seen. CARDIOVASCULAR: The heart is normal in size. Status post CABG. OSSEOUS STRUCTURES: No significant abnormalities. VISUALIZED UPPER ABDOMEN: Normal. OTHER FINDINGS: None. IMPRESSION: No active pulmonary disease.
[2018-01-30] MEDS: Pantoprazole 40 mg EC Tab PO SCH (09:55)
[2018-01-30] MEDS: Enoxaparin 40 mg Syringe SC SCH (09:56)
[2018-01-30] MEDS: Ranolazine 500 mg Extended Release Tablets PO SCH (10:02)
[2018-01-30 14:05] LABS: CK-MB 0.41 ng/mL (0.0-3.38)
--- NOTE | 2018-01-30 14:05 | CP.PCM.HP ---
History of Present Illness - History of Present Illness History of Present Illness: COMPREHENSIVE HISTORY & PHYSICAL EXAM Patient is admitted from emergency room with recurrent chest pain. HPI Patient was admitted in the month of October 2017 in [facility] for new onset of atrial fibrillation. Patient was stabilized with by mouth medication and sent home on Eliquis and is double antiplatelet therapy. A few weeks later patient started complaining of side effects from Eliquis and Eliquis was discontinued and Xarelto was started. After a few days patient also had some side effects from the right lobe of dizziness headache chest pain patient discontinue Xarelto. Since then patient is complaining of recurrent chest pain at rest sometimes on exertion nor relieved with nitroglycerin and beta-julieta. Patient already has sinus bradycardia could not increase beta-blockers. PAST HIST. Patient has history of coronary artery bypass surgery subsequently patient had 2 stents and atherectomy done at [facility]. Since then patient has been evaluated with functional imaging studies including IV Lexiscan with no definite evidence of inducible ischemia. Patient has a history of type 2 diabetes [id number] and hypertension anxiety disorder and reflux esophagitis. PERSONAL HIST: Smoking. N Alcohol. N Allergy N Travel_- . FAMILY HIST : ROS : Constitutional: Negative for weight change, chills, night sweats, fatigue and usage of assist device. Eyes: Negative for redness, swelling, itching, discharge, vision changes, blurry vision, double vision, glaucoma, cataracts, Ears: Negative for hearing loss, ringing, , tinnitus, vertigo Nose: Negative for rhinorrhea, stuffiness, sniffing, itching, postnasal drip, discoloration, nasal congestion and epistaxis. Throat: Negative for throat clearing, sore throat, hoarseness, difficulty swallowing and difficulty speaking. Respiratory: Negative for cough, , sputum production, chest tightness, wheezing, pleuritic chest pain ,daytime somnolence, chronic cough, hemoptysis, snoring at night, Cardiovascular: Negative for, Edema of legs, leg cramps, angina, claudication, , irregular heartbeat, Neurology: Negative for irritability, muscle weakness, numbness and tingling, seizures, tremors, migraines, slurred speech, syncope, memory loss, mood changes , recurrent headaches Gastrointestinal: Negative for difficulty swallowing, diarrhea, constipation, black stools, rectal bleeding, nausea, flatulence, reflux, poor appetite, changes in bowel habits, abdominal pain Genitourinary: Negative for frequent urination, hematuria, discharge, incontinence, urinary retention, frequent UTI, Psychiatric: Negative for depression, anxiety/panic, suicidal tendencies, Musculoskeletal: Negative for swollen joints, back pain, , neck pain, morning stiffness of joints, . Skin: Negative for rash, ulcers, itching, dry skin and pigmented lesions. P/E: Constitutional: Appears stated age and in no apparent distress. Head: Normocephalic. Ears: External ear canals patent without inflammation. Tympanic membranes intact with normal light reflex and landmark. Eyes: Pupils are central, bilaterally equal, symmetrical and reacts to light with normal movements and no icterus or pallor. Nose: External nares are patent. Mucosa is pink Mouth-Throat: Good general appearance and condition. No post-pharyngeal/oropharyngeal erythema and tonsillar hypertrophy. Good dental hygiene. Neck-Lymphatic: Neck is supple with normal ROM, no thyromegaly, lymph nodes or masses. JVD is normal with no carotid bruit. Lungs: Clear to percussion and auscultation with bilateral normal air entry. Cardiovascular: S1 and S2 are normal with no murmurs, gallops and rub. GI Exam: No hepatomegaly. Abdomen is soft and non-tender. No Organomegaly , masses or hernias are evident and bowel sounds are normal and active. Neurology: Higher function and all cranial nerves intact, with no gross motor or sensory deficit. Superficial and deep reflexes are normal with downwards planters. No cerebellar deficit with normal gait. Musculoskeletal: No tender spots with normal curvature of the spine with no swelling or restricted ROM of the small and large joints. Extremities: Homans sign absent. Intact pulses with no pitting edema, calf tenderness or skin color changes. Skin: No rash, eruptions or abnormal skin pigmentation LAB/RADIOLOGY: ASSESMENT : Unstable angina in the setting of coronary artery disease CABG and stent. Type 2 diabetes and hypertension PLAN: Also the patient on the telemetry follow-up the cardiac markers and patient probably will need a cardiac catheterization to evaluate coronary artery disease progression Present on Admission - Present on Admission Any Indicators Present on Admission: No Past Patient History - Infectious Disease Hx of Infectious Diseases: None - Past Medical History & Family History Past Medical History?: Yes - Past Social History Smoking Status: Former Smoker - CARDIAC Hx Hypercholesterolemia: Yes Hx Hypertension: Yes - PULMONARY Hx Respiratory Disorders: No - NEUROLOGICAL Hx Neurological Disorder: No - HEENT Hx HEENT Problems: No - RENAL Hx Chronic Kidney Disease: No - ENDOCRINE/METABOLIC Hx Endocrine Disorders: Yes Hx Diabetes Mellitus Type 2: Yes - HEMATOLOGICAL/ONCOLOGICAL Hx Blood Disorders: No - INTEGUMENTARY Hx Dermatological Problems: No - MUSCULOSKELETAL/RHEUMATOLOGICAL Hx Musculoskeletal Disorders: No Hx Falls: No - GASTROINTESTINAL Hx Gastrointestinal Disorders: Yes Hx Gastroesophageal Reflux: Yes - GENITOURINARY/GYNECOLOGICAL Hx Genitourinary Disorders: No - PSYCHIATRIC Hx Substance Use: No - SURGICAL HISTORY Hx Coronary Artery Bypass Graft: Yes (quadruple bypass) Hx Coronary Stent: Yes - ANESTHESIA Hx Anesthesia: Yes Hx Anesthesia Reactions: No Hx Malignant Hyperthermia: No Meds Allergies/Adverse Reactions: Allergies Allergy/AdvReac Type Severity Reaction Status Date / Time No Known Allergies Allergy Verified 01/29/18 21:07 Results - Vital Signs Recent Vital Signs: Last Vital Signs Temp 97.2 F L 01/30/18 08:30 Pulse 61 01/30/18 08:30 Resp 20 01/30/18 08:30 BP 130/71 01/30/18 09:54 Pulse Ox 98 01/30/18 08:30 - Labs Result Diagrams: 01/29/18 21:14 01/29/18 21:14 Labs: Laboratory Results - last 24 hr 01/29/18 01/29/18 01/29/18 21:14 21:14 21:14 WBC 9.4 RBC 4.84 Hgb 13.9 Hct 41.5 MCV 85.6 D MCH 28.6 MCHC 33.4 RDW 13.4 Plt Count 85 L MPV 10.3 Neut % (Auto) 65.9 Lymph % (Auto) 11.7 L [place] % (Auto) 20.3 H Eos % (Auto) 1.8 Baso % (Auto) 0.3 Neut # (Auto) 6.2 Lymph # (Auto) 1.1 [place] # (Auto) 1.9 H Eos # (Auto) 0.2 Baso # (Auto) 0.0 Neutrophils % (Manual) 70 Lymphocytes % (Manual) 11 L Monocytes % (Manual) 18 H Eosinophils % (Manual) 1 Platelet Estimate Decreased L PT 13.8 H INR 1.3 APTT 49 H Sodium 140 Potassium 4.3 Chloride 102 Carbon Dioxide 27 Anion Gap 14 BUN 12 Creatinine 0.8 Est GFR ( Amer) > 60 Est GFR (Non-Af Amer) > 60 POC Glucose (mg/dL) Random Glucose 124 H Calcium 9.7 Total Bilirubin 0.6 AST 30 ALT 23 Alkaline Phosphatase 78 Total Creatine Kinase CK-MB (Mass) Troponin I 0.0160 Total Protein 8.1 Albumin 4.4 Globulin 3.7 Albumin/Globulin Ratio 1.2 01/29/18 01/30/18 01/30/18 21:16 05:28 06:45 WBC RBC Hgb Hct MCV MCH MCHC RDW Plt Count MPV Neut % (Auto) Lymph % (Auto) [place] % (Auto) Eos % (Auto) Baso % (Auto) Neut # (Auto) Lymph # (Auto) [place] # (Auto) Eos # (Auto) Baso # (Auto) Neutrophils % (Manual) Lymphocytes % (Manual) Monocytes % (Manual) Eosinophils % (Manual) Platelet Estimate PT INR APTT Sodium Potassium Chloride Carbon Dioxide Anion Gap BUN Creatinine Est GFR ( Amer) Est GFR (Non-Af Amer) POC Glucose (mg/dL) 100 87 Random Glucose Calcium Total Bilirubin AST ALT Alkaline Phosphatase Total Creatine Kinase 71 CK-MB (Mass) 0.52 Troponin I < 0.0120 Total Protein Albumin Globulin Albumin/Globulin Ratio 01/30/18 01/30/18 11:10 13:39 WBC RBC Hgb Hct MCV MCH MCHC RDW Plt Count MPV Neut % (Auto) Lymph % (Auto) [place] % (Auto) Eos % (Auto) Baso % (Auto) Neut # (Auto) Lymph # (Auto) [place] # (Auto) Eos # (Auto) Baso # (Auto) Neutrophils % (Manual) Lymphocytes % (Manual) Monocytes % (Manual) Eosinophils % (Manual) Platelet Estimate PT INR APTT Sodium Potassium Chloride Carbon Dioxide Anion Gap BUN Creatinine Est GFR ( Amer) Est GFR (Non-Af Amer) POC Glucose (mg/dL) 107 Random Glucose Calcium Total Bilirubin AST ALT Alkaline Phosphatase Total Creatine Kinase 68 CK-MB (Mass) Troponin I Total Protein Albumin Globulin Albumin/Globulin Ratio
--- NOTE | 2018-01-30 19:48 | CARD ---
APPROVED REPORT Date of service: 01/29/2018 EKG Measurement Heart [id number] <Conclusion> Sinus bradycardia T wave abnormality, consider lateral ischemia Abnormal ECG
[2018-01-30 22:31] LABS: CK-MB 0.47 ng/mL (0.0-3.38)
[2018-01-31 07:47] VITALS: PULSE 51; TEMP 97.7
[2018-01-31 08:23] VITALS: O2SAT 99
[2018-01-31] MEDS: (Novolin R) Insulin Human Regular 100 units/ml vial SC SCH ×2 (08:52→11:55)
[2018-01-31] MEDS: Ranolazine 500 mg Extended Release Tablets PO SCH (09:35)
[2018-01-31] MEDS: Pantoprazole 40 mg EC Tab PO SCH (09:35)
[2018-01-31] MEDS: Enoxaparin 40 mg Syringe SC SCH (09:35)
[2018-01-31 09:40] VITALS: BP 130/81
--- NOTE | 2018-01-31 12:08 | CP.PCM.DIS ---
Provider - Provider Date of Admission: 01/29/18 22:20 Attending physician: Darian Vargas MD Time Spent in preparation of Discharge (in minutes): 36 Hospital Course - Lab Results Lab Results: Most Recent Lab Values WBC 9.4 K/uL (4.8-10.8) 01/29/18 21:14 RBC 4.84 Mil/uL (4.40-5.90) 01/29/18 21:14 Hgb 13.9 g/dL (12.0-18.0) 01/29/18 21:14 Hct 41.5 % (35.0-51.0) 01/29/18 21:14 MCV 85.6 fL (80.0-94.0) D 01/29/18 21:14 MCH 28.6 pg (27.0-31.0) 01/29/18 21:14 MCHC 33.4 g/dL (33.0-37.0) 01/29/18 21:14 RDW 13.4 % (11.5-14.5) 01/29/18 21:14 Plt Count 85 K/uL (130-400) L 01/29/18 21:14 MPV 10.3 fL (7.2-11.7) 01/29/18 21:14 Neut % (Auto) 65.9 % (50.0-75.0) 01/29/18 21:14 Lymph % (Auto) 11.7 % (20.0-40.0) L 01/29/18 21:14 [place]erry % (Auto) 20.3 % (0.0-10.0) H 01/29/18 21:14 Eos % (Auto) 1.8 % (0.0-4.0) 01/29/18 21:14 Baso % (Auto) 0.3 % (0.0-2.0) 01/29/18 21:14 Neut # (Auto) 6.2 K/uL (1.8-7.0) 01/29/18 21:14 Lymph # (Auto) 1.1 K/uL (1.0-4.3) 01/29/18 21:14 [place] # (Auto) 1.9 K/uL (0.0-0.8) H 01/29/18 21:14 Eos # (Auto) 0.2 K/uL (0.0-0.7) 01/29/18 21:14 Baso # (Auto) 0.0 K/uL (0.0-0.2) 01/29/18 21:14 Neutrophils % (Manual) 70 % (50-75) 01/29/18 21:14 Lymphocytes % (Manual) 11 % (20-40) L 01/29/18 21:14 Monocytes % (Manual) 18 % (0-10) H 01/29/18 21:14 Eosinophils % (Manual) 1 % (0-4) 01/29/18 21:14 Platelet Estimate Decreased (NORMAL) L 01/29/18 21:14 PT 13.8 SECONDS (9.7-12.2) H 01/29/18 21:14 INR 1.3 01/29/18 21:14 APTT 49 SECONDS (21-34) H 01/29/18 21:14 Sodium 140 mmol/L (132-148) 01/29/18 21:14 Potassium 4.3 mmol/L (3.6-5.2) 01/29/18 21:14 Chloride 102 mmol/L (98-107) 01/29/18 21:14 Carbon Dioxide 27 mmol/L (22-30) 01/29/18 21:14 Anion Gap 14 (10-20) 01/29/18 21:14 BUN 12 mg/dL (9-20) 01/29/18 21:14 Creatinine 0.8 mg/dL (0.8-1.5) 01/29/18 21:14 Est GFR ( Amer) > 60 01/29/18 21:14 Est GFR (Non-Af Amer) > 60 01/29/18 21:14 POC Glucose (mg/dL) 112 mg/dL (65-110) H 01/31/18 11:16 Random Glucose 124 mg/dL (75-110) H 01/29/18 21:14 Calcium 9.7 mg/dl (8.6-10.4) 01/29/18 21:14 Total Bilirubin 0.6 mg/dL (0.2-1.3) 01/29/18 21:14 AST 30 U/L (17-59) 01/29/18 21:14 ALT 23 U/L (21-72) 01/29/18 21:14 Alkaline Phosphatase 78 U/L (38-126) 01/29/18 21:14 Total Creatine Kinase 59 U/L (55-170) 01/30/18 21:50 CK-MB (Mass) 0.47 ng/mL (0.0-3.38) 01/30/18 21:50 Troponin I < 0.0120 ng/mL (0.00-0.120) 01/30/18 21:50 Total Protein 8.1 g/dL (6.3-8.3) 01/29/18 21:14 Albumin 4.4 g/dL (3.5-5.0) 01/29/18 21:14 Globulin 3.7 gm/dL (2.2-3.9) 01/29/18 21:14 Albumin/Globulin Ratio 1.2 (1.0-2.1) 01/29/18 21:14 - Hospital Course Hospital Course: Patient was admitted in the month of October 2017 in [facility] for new onset of atrial fibrillation. Patient was stabilized with by mouth medication and sent home on Eliquis and is double antiplatelet therapy. A few weeks later patient started complaining of side effects from Eliquis and Eliquis was discontinued and Xarelto was started. After a few days patient also had some side effects from the right lobe of dizziness headache chest pain patient discontinue Xarelto. Since then patient is complaining of recurrent chest pain at rest sometimes on exertion nor relieved with nitroglycerin and beta-julieta. Patient already has sinus bradycardia could not increase beta-blockers. PAST HIST. Patient has history of coronary artery bypass surgery subsequently patient had 2 stents and atherectomy done at [facility]. Since then patient has been evaluated with functional imaging studies including IV Lexiscan with no definite evidence of inducible ischemia. Patient has a history of type 2 diabetes [id number] and hypertension anxiety disorder and reflux esophagitis. CARDIAC MARKERS WERE NEG NO FURTHER CP D/W PT. AND FAMILY WILL NEED CATH PT. DOES NOT WANT TO WAIT TILL . IN HOSP. PT STABLE D/C , NO XARELTO CATH OUT PT. Discharge Plan - Follow Up Plan Condition: STABLE Disposition: HOME/ ROUTINE Instructions: Chest Pain (DC) Additional Instructions: Discharge home as per Dr Vargas. Follow up in the office after 1 week. Stop taking Xarelto. Referrals: Darian Vargas MD [Staff Provider] -
--- NOTE | 2018-02-02 11:44 | CARD ---
APPROVED REPORT Date of service: 01/30/2018 EKG Measurement Heart [id number] <Conclusion> Sinus bradycardia Nonspecific T wave abnormality Abnormal ECG
== END 2018-01-31 12:20 | disposition home or self-care (01) ==
LOC: C.ER 20:42 → C.9E 22:20 → C.6T 23:06
PROVIDERS: ADMIT Internal Medicine Cardiovascular Disease; ATTEND Internal Medicine Cardiovascular Disease
DX: I25.110 Atherosclerotic heart disease of native coronary artery with unstable angina pectoris (principal); E11.9 Type 2 diabetes mellitus without complications; E78.00 Pure hypercholesterolemia, unspecified; I10 Essential (primary) hypertension; I48.91 Unspecified atrial fibrillation; Z95.1 Presence of aortocoronary bypass graft; Z87.891 Personal history of nicotine dependence; K21.9 Gastro-esophageal reflux disease without esophagitis; R00.1 Bradycardia, unspecified; F41.9 Anxiety disorder, unspecified
CPT/HCPCS: 36415; 71045; 80053; 82948; 84484; 85025; 85610; 85730; 93005; 99285; G0378; J1650